=== PATIENT | female | born 1940 | race Caucasian/White ===

== ENCOUNTER 2018-07-04 10:24 | Observation (INO) | payer MEDICARE, SELFPAY ==
[2018-07-04] VITALS (20 sets, daily range): BP systolic 139–149; BP diastolic 71–73; PULSE 69–76; RESP 9–22; TEMP 36.3–36.7; O2SAT 96–100
[2018-07-04 11:03] LABS: Abs Immature Grans 0.01 k/cumm (0.0-0.09); Absolute Basophil Count 0.04 k/cumm (0.0-0.2); Absolute Eosinophil Count 0.28 k/cumm (0.0-0.7); Absolute Lymphocyte Count 1.48 k/cumm (1.2-3.4); Absolute Monocyte Count 0.43 k/cumm (0.11-0.7); Absolute Neutrophil Count 4.39 k/cumm (1.2-6.7); Basophils % 0.6; Eosinophils % 4.2; HCT 42.3 % (36.0-46.0); HGB 13.6 g/dL (12.0-15.5); Immature Grans % 0.2; Lymphocytes % 22.3; Mean Corp. HGB Concentration 32.2 g/dL (32.0-36.0); Mean Corpuscular Hemoglobin 33.3 pg (27.0-33.0); Mean Corpuscular Volume 103.7 fL (80-95); Mean Platelet Volume 9.9 fL (8.0-11.0); Monocytes % 6.5; Neutrophils % 66.2; Platelet Count 199 x1000/uL (130-400); RBC 4.08 m/cumm (4.00-5.20); RBC Distribution Width 14.4 % (11.7-14.6); White Blood Cell Count 6.63 k/cumm (4.4-10.8)
--- NOTE | 2018-07-04 11:19 | DI.CT_ITS ---
SYMPTOMS/DIAGNOSIS: DIZZY WITH SLURRED SPEECH THIS AM X 3, NOW RESOLVED CRANIAL CT: A noncontrast enhanced examination was performed. Atrophic changes consistent with age are identified. There is no evidence of an intra or extra-axial hemorrhage, mass or edema. Small regions of diminished absorption in the frontoparietal white matter would be consistent with small vessel disease. The ventricles are normal. There is no evidence of a skull fracture. The paranasal sinuses appear intact. There is no evidence of a mastoid effusion. SUMMARY: No acute intracranial abnormality is demonstrated.
[2018-07-04 11:24] LABS: ALT 55 U/L (12-78); AST 45 U/L (15-37); Albumin 3.7 g/dL (3.4-5.0); Alkaline Phosphatase 112 U/L (46-116); Bilirubin, Direct 0.09 mg/dL (0.00-0.20); Bilirubin, Total 0.3 mg/dL (0.2-1.0); Total Protein 7.6 g/dL (6.4-8.2)
[2018-07-04 11:26] LABS: ALT 55 U/L (12-78); AST 45 U/L (15-37); Albumin 3.6 g/dL (3.4-5.0); Alkaline Phosphatase 111 U/L (46-116); Anion Gap 9.1 mmol/L (3-11); BUN 22 mg/dL (7-18); Bilirubin, Total 0.3 mg/dL (0.2-1.0); CO2 27.9 mmol/L (21.0-32.0); CREATININE 1.04 mg/dL (0.55-1.02); Calcium 9.4 mg/dL (8.5-10.1); Chloride 105 mmol/L (98-107); Estimated GFR 50.99 (mL/min/1.73m2); Glucose 139 mg/dL (70-100); Magnesium 2.4 mg/dL (1.8-2.4); Potassium 4.5 mmol/L (3.5-5.1); Sodium 142 mmol/L (136-145); Total Protein 7.6 g/dL (6.4-8.2)
[2018-07-04 11:29] LABS: Troponin I < 0.02 ng/mL (0.00-0.06)
--- NOTE | 2018-07-04 11:29 | DI.RAD_ITS ---
SYMPTOMS/DIAGNOSIS: TIA PA AND LATERAL CHEST: The lungs are free of infiltrate. There is no pleural effusion. The cardiovascular structures are intact. Pacing wires are in stable position when compared with prior images dating back to 04/25/16. SUMMARY: No evidence of acute cardiopulmonary disease.
--- NOTE | 2018-07-04 11:50 | W.ED.GENAD ---
Discharge Plan Disposition Patient Disposition: [facility] INPATIENT Condition: Serious Discharge Details Chief Complaint: CVA/TIA Clinical Impression: TIA (transient ischemic attack) Reason For Visit: AZAM Primary Care Provider: Gema Guidry ED Provider: Madhu Lafleur Home Meds and New Rx's Prescriptions: No Action ascorbic acid (vitamin C) 500 MG tablet 500 mg PO DAILY RF: 0 aspirin [Aspirin Low-Strength] 81 MG tablet,chewable 81 mg PO DAILY RF: 0 ipratropium bromide [Atrovent] 30 ML spray,non-aerosol 2 spry NS BID PRN Qty: 1 RF: 11 cholecalciferol (vitamin D3) [Vitamin D3] 2,000 UNIT tablet 2,000 unit PO DAILY RF: 0 acetaminophen [Tylenol Extra Strength] 500 MG tablet 1,000 mg PO PRN RF: 0 calcium carbonate 500 MG tablet 1,500 mg PO DAILY RF: 0 tpspxxoq-vfp-RS-Ca carb-vit K [Women's 50 Plus Daily Formula] 1 EACH tablet 1 ea PO DAILY RF: 0 mupirocin [Bactroban] 22 GM ointment 1 darleen Topical DAILY Qty: 22 RF: 2 cinnamon bark-chromium picolin 1 EACH capsule 500 mg PO DAILY RF: 0 blood sugar diagnostic [FreeStyle Lite Strips] 1 EACH strip 1 strip Miscellaneous DAILY Qty: 100 RF: 4 clopidogrel 75 MG tablet 75 mg PO DAILY Qty: 90 RF: 4 metformin 500 MG tablet 500 mg PO qPM Qty: 90 RF: 4 nitroglycerin 0.4 MG tablet, sublingual 0.4 mg Sublingual Q 5 MIN PRN Qty: 25 RF: 11 mexiletine 200 MG capsule 200 mg PO TID Qty: 270 RF: 4 [place]-3S/Dha/Epa/Fish Oil [Fish Oil 1,000 mg Softgel] 1 EACH capsule 1 ea PO DAILY RF: 0 meclizine 25 MG tablet,chewable 25 mg PO BID Qty: 25 RF: 0 Metoprolol Succinate 50 MG TAB.ER.24H 50 mg PO DAILY Qty: 90 RF: 4 lancets 1 EACH misc 1 ea Miscellaneous DAILY Qty: 100 RF: 4 amiodarone 200 MG tablet 200 mg PO DAILY Qty: 90 RF: 3 Atorvastatin Calcium 20 MG tablet 20 mg PO DAILY Qty: 90 RF: 3 levothyroxine 75 MCG tablet 75 mcg PO 4 days a week Qty: 60 RF: 3 levothyroxine 50 MCG tablet 50 mcg PO DAILY Qty: 30 RF: 2 losartan 50 MG tablet 50 mg PO DAILY Qty: 90 RF: 4 emollient [Vanicream] 18,200 GM cream 18,200 gm Topical BID Qty: 1 RF: 0 Medical Decision Making 11:45 --78-year-old female with history of coronary artery disease, peripheral vascular disease, diabetes, here after 3 brief successive episodes of slurred speech and a sensation of generally not feeling well this morning. Asymptomatic at this time. Neurologically intact. Considered arrhythmia ECG reviewed and interpreted by me: Sinus rhythm 72 bpm, first-degree AV block with FL interval of 250, normal axis. First-degree AV block is new compared to prior EKG from 11/27/2015. While I was in the room with the patient, I observed on the monitor patient heart rhythm that appeared to be paced. High concern for TIA and this is despite her taking both aspirin and Plavix (both taken today) as prescribed for coronary artery disease. CT head interpreted by Dr. Wynn as nothing acute Chest x-ray interpreted by radiology: No evidence of acute cardiopulmonary disease. I called and spoke with the hospitalist on-call, Dr. Erazo, discussed ED presentation and course. He will admit the patient. He is aware of pending diagnostic workup. Care transitioned to Dr. Erazo. HPI General Mode of arrival: EMS. Date/Time Provider Initiated Documentation: 07/04/18 10:39. Limitations to Documentation: no limitations. Information obtained by: patient and EMS. HPI Narrative: 78-year-old female with multiple medical problems including history of coronary artery disease status post and STEMI, PCI to the left main, LVEF 25-30%, status post temporary pacemaker complicated by cardiac puncture and pneumothorax, Vtach, s/p ICD implantation, DM, PVD, here after episode of slurred speech. Patient notes that she was feeling well this morning. At 9 AM she was on the phone with her daughter and experienced 3 brief episodes of slurred speech and a general sensation of not feeling well. The episodes lasted a few seconds and resolved. She was asymptomatic between episodes and after the third episode. She has remained asymptomatic. Symptoms were severe. No modifiers. No associated headache, numbness or weakness. Patient has never experienced similar in the past. Patient did take her prescribed aspirin and Plavix today. Related Data Home Medications Medication Instructions Recorded Confirmed ascorbic acid (vitamin C) 500 mg PO DAILY 01/01/13 07/04/18 aspirin [Aspirin Low-Strength] 81 mg PO DAILY tab-cap 01/01/13 07/04/18 cholecalciferol (vitamin D3) 2,000 unit PO DAILY 01/01/13 07/04/18 [Vitamin D3] ipratropium bromide [Atrovent 2 spry NS BID PRN #1 spray 01/01/13 07/04/18 0.03%] acetaminophen [Tylenol Extra 1,000 mg PO PRN tab-cap 02/20/14 07/04/18 Strength] calcium carbonate 1,500 mg PO DAILY 05/07/15 07/04/18 nicldzov-sgo-JQ-Ca carb-vit K 1 ea PO DAILY 07/02/15 07/04/18 [Women's 50+ Daily Tablet] mupirocin [Bactroban] 1 darleen TOPICAL DAILY #22 gm 11/15/15 cinnamon bark-chromium picolin 500 mg PO DAILY 01/28/16 07/04/18 blood sugar diagnostic [Freestyle #100 strip 03/20/17 Lite Strips] clopidogrel 75 mg PO DAILY #90 tab-cap 05/14/17 07/04/18 metformin 500 mg PO qPM #90 tab-cap 05/18/17 07/04/18 nitroglycerin 0.4 mg SUBLINGUAL Q 5 MIN PRN #25 05/28/17 07/04/18 tab-cap mexiletine 200 mg PO TID #270 tab-cap 05/30/17 07/04/18 [place]-3S/Dha/Epa/Fish Oil [Fish 1 ea PO DAILY 08/08/17 07/04/18 Oil 1,000 mg Softgel] meclizine 25 mg PO BID #25 tab-cap 08/08/17 07/04/18 lancets #100 ea 10/01/17 amiodarone 200 mg PO DAILY #90 tab-cap 10/31/17 07/04/18 levothyroxine 50 mcg PO DAILY #30 tab-cap 12/24/17 07/04/18 levothyroxine 75 mcg PO 4 days a week #60 tab-cap 12/24/17 07/04/18 losartan 50 mg PO DAILY #90 tab-cap 04/26/18 07/04/18 emollient [Vanicream] 18,200 gm TOPICAL BID #1 tub 05/06/18 07/04/18 Previous Rx's Medication Instructions Recorded mexiletine 200 mg PO TID #270 tab-cap 05/30/17 meclizine 25 mg PO BID #25 tab-cap 08/08/17 lancets #100 ea 10/01/17 amiodarone 200 mg PO DAILY #90 tab-cap 10/31/17 levothyroxine 50 mcg PO DAILY #30 tab-cap 12/24/17 levothyroxine 75 mcg PO 4 days a week #60 tab-cap 12/24/17 losartan 50 mg PO DAILY #90 tab-cap 04/26/18 emollient [Vanicream] 18,200 gm TOPICAL BID #1 tub 05/06/18 Allergies Allergy/AdvReac Type Severity Reaction Status Date / Time lisinopril AdvReac Unknown COUGH Unverified 07/04/18 10:34 SCALLOP AdvReac Intermediate DIZZINESS, Uncoded 07/04/18 10:34 LIGHTHEADED General Stated Complaint: CVA/TIA LADAN: 2 Review of Systems Review of Systems All systems reviewed & are unremarkable except as noted in HPI and below Cardiovascular Denies chest pain, Denies diaphoresis, Denies syncope and Denies palpitations Gastrointestinal Denies abdominal pain Neurologic Denies syncope Endocrine Denies palpitations PFSH Family History Mother Cerebrovascular accident Father Essential hypertension Heart disease Sister Diabetes Grandfather No problems noted. Grandfather No problems noted. Grandmother No problems noted. Grandmother No problems noted. FAMILY HISTORY Cerebrovascular accident Sister Diabetes Essential hypertension Neoplasm Sister Diabetes Essential hypertension Cerebrovascular accident Son No problems noted. Daughter No problems noted. Social History Smoking/Tobacco Use Status: Former Tobacco Use Surgical History CYST-lower back section Cholecystectomy Extraction of cataract LEFT LEG (~04/2013) Ligation of fallopian tube Open Carpal Tunnel release (~07/2008) Exam Const General: cooperative and no acute distress HENMT Head: normocephalic and atraumatic Mouth: moist mucous membranes Eyes Conjunctivae: normal conjunctivae Sclera: normal sclerae EOM: EOM intact bilaterally Neck Neck: trachea midline and supple Resp Auscultation: clear to auscultation bilaterally, no rales, no rhonchi and no wheezes Cardio Jugular venous pressure: no JVD Rate: regular rate and not tachycardic Rhythm: regular rhythm GI Palpation: soft, not firm, no guarding, no masses, not rigid and nontender Skin General skin exam: no rashes or lesions noted Neuro General: alert, awake, oriented x3, tone normal, moves all extremities, no focal motor deficits and CN's II-XI intact bilaterally Cranial Nerves: CN's II-XI intact bilaterally Cognition: normal cognition Speech: speech normal, no expressive aphasia and no receptive aphasia Motor: muscle tone normal throughout and strength 5/5 throughout Extrem General: no edema Other: left bka Psych Appearance: grossly normal Mental Status: mental status grossly normal Speech and Movement: speech and movement normal Course Vital Signs Temperature 36.7 C 07/04/18 10:28 Pulse 73 07/04/18 10:28 Respiratory Rate 18 07/04/18 10:28 Pulse Oximetry 100 07/04/18 10:28 Temperature 36.7 C 07/04/18 10:28 Temperature Source Skin 07/04/18 10:28 Pulse 73 07/04/18 10:28 Respiratory Rate 18 07/04/18 10:28 Respiratory Effort 07/04/18 10:32 Pulse Oximetry 100 07/04/18 10:28 Oxygen Delivery Method Room Air 07/04/18 10:28 Oxygen Flow Rate 0 07/04/18 10:28 Pain Level 0 07/04/18 10:28 Lab/Test Results Lab/Test Results: Laboratory Tests Range/Units 07/04/18 07/04/18 07/04/18 10:50 10:50 10:50 WBC (4.4-10.8) k/cumm 6.63 RBC (4.00-5.20) m/cumm 4.08 Hgb (12.0-15.5) g/dL 13.6 Hct (36.0-46.0) % 42.3 MCV (80-95) fL 103.7 H MCH (27.0-33.0) pg 33.3 H MCHC (32.0-36.0) g/dL 32.2 RDW (11.7-14.6) % 14.4 Plt Count (130-400) x1000/uL 199 MPV (8.0-11.0) fL 9.9 Immature Gran % 0.2 Neutrophils % 66.2 Lymphocytes % 22.3 Monocytes % 6.5 Eosinophils % 4.2 Basophils % 0.6 Absolute Neutrophils (1.2-6.7) k/cumm 4.39 Absolute Lymphocytes (1.2-3.4) k/cumm 1.48 Absolute Monocytes (0.11-0.7) k/cumm 0.43 Absolute Eosinophils (0.0-0.7) k/cumm 0.28 Absolute Basophils (0.0-0.2) k/cumm 0.04 Sodium (136-145) mmol/L 142 Potassium (3.5-5.1) mmol/L 4.5 Chloride (98-107) mmol/L 105 Carbon Dioxide (21.0-32.0) mmol/L 27.9 Anion Gap (3-11) mmol/L 9.1 BUN (7-18) mg/dL 22 H Creatinine (0.55-1.02) mg/dL 1.04 H Estimated GFR/1.73 m2 (mL/min/1.73m2) 50.99 Glucose (70-100) mg/dL 139 H Calcium (8.5-10.1) mg/dL 9.4 Magnesium (1.8-2.4) mg/dL 2.4 Total Bilirubin (0.2-1.0) mg/dL 0.3 0.3 Conjugated Bilirubin (0.00-0.20) mg/dL 0.09 AST (15-37) U/L 45 H 45 H ALT (12-78) U/L 55 55 Alkaline Phosphatase (46-116) U/L 112 111 Troponin I (0.00-0.06) ng/mL < 0.02 Total Protein (6.4-8.2) g/dL 7.6 7.6 Albumin (3.4-5.0) g/dL 3.7 3.6
--- NOTE | 2018-07-04 12:02 | ED.GENADUL_ITS ---
Discharge Plan Disposition Patient Disposition: [facility] INPATIENT Condition: Serious Discharge Details Chief Complaint: CVA/TIA Clinical Impression: TIA (transient ischemic attack) Reason For Visit: AZAM Primary Care Provider: Gema Guidry ED Provider: Madhu Lafleur Home Meds and New Rx's Prescriptions: No Action ascorbic acid (vitamin C) 500 MG tablet 500 mg PO DAILY RF: 0 aspirin [Aspirin Low-Strength] 81 MG tablet,chewable 81 mg PO DAILY RF: 0 ipratropium bromide [Atrovent] 30 ML spray,non-aerosol 2 spry NS BID PRN Qty: 1 RF: 11 cholecalciferol (vitamin D3) [Vitamin D3] 2,000 UNIT tablet 2,000 unit PO DAILY RF: 0 acetaminophen [Tylenol Extra Strength] 500 MG tablet 1,000 mg PO PRN RF: 0 calcium carbonate 500 MG tablet 1,500 mg PO DAILY RF: 0 aixnulvy-hsx-JK-Ca carb-vit K [Women's 50 Plus Daily Formula] 1 EACH tablet 1 ea PO DAILY RF: 0 mupirocin [Bactroban] 22 GM ointment 1 darleen Topical DAILY Qty: 22 RF: 2 cinnamon bark-chromium picolin 1 EACH capsule 500 mg PO DAILY RF: 0 blood sugar diagnostic [FreeStyle Lite Strips] 1 EACH strip 1 strip Miscellaneous DAILY Qty: 100 RF: 4 clopidogrel 75 MG tablet 75 mg PO DAILY Qty: 90 RF: 4 metformin 500 MG tablet 500 mg PO qPM Qty: 90 RF: 4 nitroglycerin 0.4 MG tablet, sublingual 0.4 mg Sublingual Q 5 MIN PRN Qty: 25 RF: 11 mexiletine 200 MG capsule 200 mg PO TID Qty: 270 RF: 4 [place]-3S/Dha/Epa/Fish Oil [Fish Oil 1,000 mg Softgel] 1 EACH capsule 1 ea PO DAILY RF: 0 meclizine 25 MG tablet,chewable 25 mg PO BID Qty: 25 RF: 0 Metoprolol Succinate 50 MG TAB.ER.24H 50 mg PO DAILY Qty: 90 RF: 4 lancets 1 EACH misc 1 ea Miscellaneous DAILY Qty: 100 RF: 4 amiodarone 200 MG tablet 200 mg PO DAILY Qty: 90 RF: 3 Atorvastatin Calcium 20 MG tablet 20 mg PO DAILY Qty: 90 RF: 3 levothyroxine 75 MCG tablet 75 mcg PO 4 days a week Qty: 60 RF: 3 levothyroxine 50 MCG tablet 50 mcg PO DAILY Qty: 30 RF: 2 losartan 50 MG tablet 50 mg PO DAILY Qty: 90 RF: 4 emollient [Vanicream] 18,200 GM cream 18,200 gm Topical BID Qty: 1 RF: 0 Medical Decision Making 11:45 --78-year-old female with history of coronary artery disease, peripheral vascular disease, diabetes, here after 3 brief successive episodes of slurred speech and a sensation of generally not feeling well this morning. Asymptomatic at this time. Neurologically intact. Considered arrhythmia ECG reviewed and interpreted by me: Sinus rhythm 72 bpm, first-degree AV block with [place] interval of 250, normal axis. First-degree AV block is new compared to prior EKG from 11/27/2015. While I was in the room with the patient, I observed on the monitor patient heart rhythm that appeared to be paced. High concern for TIA and this is despite her taking both aspirin and Plavix ( both taken today) as prescribed for coronary artery disease. CT head interpreted by Dr. Wynn as nothing acute Chest x-ray interpreted by radiology: No evidence of acute cardiopulmonary disease. I called and spoke with the hospitalist on-call, Dr. Erazo, discussed ED presentation and course. He will admit the patient. He is aware of pending diagnostic workup. Care transitioned to Dr. Erazo. HPI General Mode of arrival: EMS . Date/Time Provider Initiated Documentation: 07/04/18 10:39 . Limitations to Documentation: no limitations . Information obtained by: patient and EMS . HPI Narrative: 78-year-old female with multiple medical problems including history of coronary artery disease status post and STEMI, PCI to the left main, LVEF 25-30%, status post temporary pacemaker complicated by cardiac puncture and pneumothorax, Vtach, s/p ICD implantation, DM, PVD, here after episode of slurred speech. Patient notes that she was feeling well this morning. At 9 AM she was on the phone with her daughter and experienced 3 brief episodes of slurred speech and a general sensation of not feeling well. The episodes lasted a few seconds and resolved. She was asymptomatic between episodes and after the third episode. She has remained asymptomatic. Symptoms were severe. No modifiers. No associated headache, numbness or weakness. Patient has never experienced similar in the past. Patient did take her prescribed aspirin and Plavix today. Related Data Home Medications Medication Instructions Recorded Confirmed ascorbic acid (vitamin C) 500 mg PO DAILY 01/01/13 07/04/18 aspirin [Aspirin Low-Strength] 81 mg PO DAILY tab-cap 01/01/13 07/04/18 cholecalciferol (vitamin D3) 2,000 unit PO DAILY 01/01/13 07/04/18 [Vitamin D3] ipratropium bromide [Atrovent 2 spry NS BID PRN #1 spray 01/01/13 07/04/18 0.03%] acetaminophen [Tylenol Extra 1,000 mg PO PRN tab-cap 02/20/14 07/04/18 Strength] calcium carbonate 1,500 mg PO DAILY 05/07/15 07/04/18 xezfhaae-gcy-XU-Ca carb-vit K 1 ea PO DAILY 07/02/15 07/04/18 [Women's 50+ Daily Tablet] mupirocin [Bactroban] 1 darleen TOPICAL DAILY #22 gm 11/15/15 cinnamon bark-chromium picolin 500 mg PO DAILY 01/28/16 07/04/18 blood sugar diagnostic [Freestyle #100 strip 03/20/17 Lite Strips] clopidogrel 75 mg PO DAILY #90 tab-cap 05/14/17 07/04/18 metformin 500 mg PO qPM #90 tab-cap 05/18/17 07/04/18 nitroglycerin 0.4 mg SUBLINGUAL Q 5 MIN PRN #25 05/28/17 07/04/18 tab-cap mexiletine 200 mg PO TID #270 tab-cap 05/30/17 07/04/18 [place]-3S/Dha/Epa/Fish Oil [Fish 1 ea PO DAILY 08/08/17 07/04/18 Oil 1,000 mg Softgel] meclizine 25 mg PO BID #25 tab-cap 08/08/17 07/04/18 lancets #100 ea 10/01/17 amiodarone 200 mg PO DAILY #90 tab-cap 10/31/17 07/04/18 levothyroxine 50 mcg PO DAILY #30 tab-cap 12/24/17 07/04/18 levothyroxine 75 mcg PO 4 days a week #60 tab-cap 12/24/17 07/04/18 losartan 50 mg PO DAILY #90 tab-cap 04/26/18 07/04/18 emollient [Vanicream] 18,200 gm TOPICAL BID #1 tub 05/06/18 07/04/18 Previous Rx's Medication Instructions Recorded mexiletine 200 mg PO TID #270 tab-cap 05/30/17 meclizine 25 mg PO BID #25 tab-cap 08/08/17 lancets #100 ea 10/01/17 amiodarone 200 mg PO DAILY #90 tab-cap 10/31/17 levothyroxine 50 mcg PO DAILY #30 tab-cap 12/24/17 levothyroxine 75 mcg PO 4 days a week #60 tab-cap 12/24/17 losartan 50 mg PO DAILY #90 tab-cap 04/26/18 emollient [Vanicream] 18,200 gm TOPICAL BID #1 tub 05/06/18 Allergies Allergy/AdvReac Type Severity Reaction Status Date / Time lisinopril AdvReac Unknown COUGH Unverified 07/04/18 10:34 SCALLOP AdvReac Intermediate DIZZINESS, Uncoded 07/04/18 10:34 LIGHTHEADED General Stated Complaint: CVA/TIA LADAN: 2 Review of Systems Review of Systems All systems reviewed & are unremarkable except as noted in HPI and below Cardiovascular Denies chest pain, Denies diaphoresis, Denies syncope and Denies palpitations Gastrointestinal Denies abdominal pain Neurologic Denies syncope Endocrine Denies palpitations PFSH Family History Mother Cerebrovascular accident Father Essential hypertension Heart disease Sister Diabetes Grandfather No problems noted. Grandfather No problems noted. Grandmother No problems noted. Grandmother No problems noted. FAMILY HISTORY Cerebrovascular accident Sister Diabetes Essential hypertension Neoplasm Sister Diabetes Essential hypertension Cerebrovascular accident Son No problems noted. Daughter No problems noted. Social History Smoking/Tobacco Use Status: Former Tobacco Use Surgical History CYST-lower back section Cholecystectomy Extraction of cataract LEFT LEG (~04/2013) Ligation of fallopian tube Open Carpal Tunnel release (~07/2008) Exam Const General: cooperative and no acute distress HENMT Head: normocephalic and atraumatic Mouth: moist mucous membranes Eyes Conjunctivae: normal conjunctivae Sclera: normal sclerae EOM: EOM intact bilaterally Neck Neck: trachea midline and supple Resp Auscultation: clear to auscultation bilaterally, no rales, no rhonchi and no wheezes Cardio Jugular venous pressure: no JVD Rate: regular rate and not tachycardic Rhythm: regular rhythm GI Palpation: soft, not firm, no guarding, no masses, not rigid and nontender Skin General skin exam: no rashes or lesions noted Neuro General: alert, awake, oriented x3, tone normal, moves all extremities, no focal motor deficits and CN's II-XI intact bilaterally Cranial Nerves: CN's II-XI intact bilaterally Cognition: normal cognition Speech: speech normal, no expressive aphasia and no receptive aphasia Motor: muscle tone normal throughout and strength 5/5 throughout Extrem General: no edema Other: left bka Psych Appearance: grossly normal Mental Status: mental status grossly normal Speech and Movement: speech and movement normal Course Vital Signs Temperature 36.7 C 07/04/18 10:28 Pulse 73 07/04/18 10:28 Respiratory Rate 18 07/04/18 10:28 Pulse Oximetry 100 07/04/18 10:28 Temperature 36.7 C 07/04/18 10:28 Temperature Source Skin 07/04/18 10:28 Pulse 73 07/04/18 10:28 Respiratory Rate 18 07/04/18 10:28 Respiratory Effort 07/04/18 10:32 Pulse Oximetry 100 07/04/18 10:28 Oxygen Delivery Method Room Air 07/04/18 10:28 Oxygen Flow Rate 0 07/04/18 10:28 Pain Level 0 07/04/18 10:28 Lab/Test Results Lab/Test Results: Laboratory Tests Range/Units 07/04/18 07/04/18 07/04/18 10:50 10:50 10:50 WBC (4.4-10.8) k/cumm 6.63 RBC (4.00-5.20) m/cumm 4.08 Hgb (12.0-15.5) g/dL 13.6 Hct (36.0-46.0) % 42.3 MCV (80-95) fL 103.7 H MCH (27.0-33.0) pg 33.3 H MCHC (32.0-36.0) g/dL 32.2 RDW (11.7-14.6) % 14.4 Plt Count (130-400) x1000/uL 199 MPV (8.0-11.0) fL 9.9 Immature Gran % 0.2 Neutrophils % 66.2 Lymphocytes % 22.3 Monocytes % 6.5 Eosinophils % 4.2 Basophils % 0.6 Absolute Neutrophils (1.2-6.7) k/cumm 4.39 Absolute Lymphocytes (1.2-3.4) k/cumm 1.48 Absolute Monocytes (0.11-0.7) k/cumm 0.43 Absolute Eosinophils (0.0-0.7) k/cumm 0.28 Absolute Basophils (0.0-0.2) k/cumm 0.04 Sodium (136-145) mmol/L 142 Potassium (3.5-5.1) mmol/L 4.5 Chloride (98-107) mmol/L 105 Carbon Dioxide (21.0-32.0) mmol/L 27.9 Anion Gap (3-11) mmol/L 9.1 BUN (7-18) mg/dL 22 H Creatinine (0.55-1.02) mg/dL 1.04 H Estimated GFR/1.73 m2 (mL/min/1.73m2) 50.99 Glucose (70-100) mg/dL 139 H Calcium (8.5-10.1) mg/dL 9.4 Magnesium (1.8-2.4) mg/dL 2.4 Total Bilirubin (0.2-1.0) mg/dL 0.3 0.3 Conjugated Bilirubin (0.00-0.20) mg/dL 0.09 AST (15-37) U/L 45 H 45 H ALT (12-78) U/L 55 55 Alkaline Phosphatase (46-116) U/L 112 111 Troponin I (0.00-0.06) ng/mL < 0.02 Total Protein (6.4-8.2) g/dL 7.6 7.6 Albumin (3.4-5.0) g/dL 3.7 3.6
[2018-07-04 12:11] LABS: Bilirubin Negative (Negative); Blood Negative (Negative); Clarity Clear; Glucose Negative (Negative); Ketones Negative (Negative); Leukocyte Esterase Trace (Negative); Nitrite Negative (Negative); Urobilinogen 0.2 EU/dL (Up TO 0.2)
[2018-07-04 12:19] LABS: Bacteria Few HPF (Negative); C & S Indicated? No; Casts Negative LPF (Negative); Crystals Negative HPF (Negative); Epithelial Cells Few HPF (Negative); Mucus Negative (Negative); Other Cells Few Transitional (Negative); RBC Negative (0-2); WBC 0-2 HPF (0-5)
--- NOTE | 2018-07-04 13:56 | DI.US_ITS ---
SYMPTOMS/DIAGNOSIS: TRANSIENT ISCHEMIC ATTACK, MULTIPLE EPISODES OF GARBLED SPEECH CAROTID ULTRASOUND: There is mild to moderate plaque in the right carotid bulb and proximal ICA. Moderate to severe plaque is noted in the left carotid bulb and proximal ICA and mid portion of the common carotid artery. Bilateral antegrade flow is noted in the vertebrals. There is no evidence of greater than 50% stenosis in the carotid vessels.
--- NOTE | 2018-07-04 14:52 | HPE_ITS ---
Date of service: 07/04/18 Time of Service: 14:51 Assessment and Plan (1) Slurred speech: Current visit: Yes Status: Acute She experienced 3 brief episodes of slurred speech today which has resolved completely. She had a CT head which did not reveal an acute intracranial process. She cannot have an MRI due to her pacer/ICD. Carotid artery ultrasound pending. Echo ordered. Monitor on telemetry. Continue home dual antiplatelet therapy and statin as well as good blood pressure control. She will need extended cardiac monitoring upon discharge. (2) Non-ST elevation (NSTEMI) myocardial infarction: Current visit: Yes Status: Acute Continue dual antiplatelet therapy, BB, statin, arb, PRN nitro. (3) Fracture of neck of left femur: Current visit: Yes Status: Acute Recently fractured left femur with repair at [facility] (early may). She is doing well postoperatively. Continue to monitor. (4) Ventricular fibrillation: Current visit: Yes Status: Acute Pacer/ICD placed. Continue rate controlling medications. Monitor on telemetry. (5) Amputated below knee: Current visit: Yes Status: Acute Wears prosthesis. No open areas or erythema at amputation site. Continue to monitor. (6) Type 2 diabetes mellitus: Current visit: Yes Status: Acute Well controlled. Last Hgb A1c 6.2 per patient. Plan to reassess with morning labs. Continue ADA diet and fingersticks. (7) Discharge planning issues: Current visit: Yes Status: Acute She is a DNR/DNI. This case was discussed with Dr. Erazo who is in agreement. History of Present Illness Chief Complaint: Slurred speech Narrative: Cris Beltran is an 78 year old female with a complicated past medical history including NSTEMI with [address] [facility] 3 years ago, complicated by cardiac puncture and pneumothorax, Vtach, s/p ICD implantation. Her LVEF is 25-30%. She also has a history of diabetes with left BKA. presented to the ED today after she experienced 3 very brief episodes of slurred speech while on the phone with her daughter this morning. She was also experiencing ringng in the ears at that time. She reports being in her usual state of health prior. She denies any headache, dizziness, vision changes, coordination problems , no chest pain/pressure, palpitations, shortness of breath, coughing, wheezing , no nausea, vomiting, diarrhea or constipation. She denies any urinary symptoms. Work up in the ED included labs which revealed an elevated BUN and creatinine of 22 and 1.04, without any other abnormalities. She had a CT head that showed no acute process. Chest x-ray showed no evidence of acute cardiopulmonary disease. She cannot have MRI due to pacer/ICD. She is admitted to the floor for further observation and management. She will remain on telemetry. She will have echocardiogram and carotid artery ultrasound. Her case was discussed with neurology, will consult as needed pending study results. Review of Systems Constitutional Denies chills, Denies fever(s) and Denies headache(s) Eyes Denies change in vision and Denies diplopia ENT Denies dizziness and Denies headache(s) Cardiovascular Denies chest pain, Denies diaphoresis, Denies syncope, Denies rapid heart rate, Denies edema, Denies lightheadedness and Denies dyspnea Respiratory Denies cough, Denies dyspnea and Denies wheezing Gastrointestinal Denies abdominal pain, Denies constipation, Denies nausea and Denies vomiting Genitourinary Denies hematuria, Denies dysuria, Denies urinary incontinence and Denies urinary urgency Musculoskeletal Denies numbness and Reports other Comments: LBKA. No pain, stiffness or swelling. No calf swelling or tenderness. Integumentary/Breasts Denies lesions and Denies rash Neurologic Reports abnormal speech (as per HPI), Denies confusion, Denies dizziness, Denies syncope, Denies headache(s) and Denies numbness Psychiatric Denies confusion Allergic/Immunologic Denies wheezing COUNT INCLUDES THE [facility] Family History Mother Cerebrovascular accident Father Essential hypertension Heart disease Sister Diabetes Grandfather No problems noted. Grandfather No problems noted. Grandmother No problems noted. Grandmother No problems noted. FAMILY HISTORY Cerebrovascular accident Sister Diabetes Essential hypertension Neoplasm Sister Diabetes Essential hypertension Cerebrovascular accident Son No problems noted. Daughter No problems noted. Social History Smoking/Tobacco Use Status: Former Tobacco Use Surgical History CYST-lower back section Cholecystectomy Extraction of cataract LEFT LEG (~04/2013) Ligation of fallopian tube Open Carpal Tunnel release (~07/2008) Meds Home Medications Medication Instructions Recorded Confirmed Type ascorbic acid (vitamin C) 500 mg PO DAILY 01/01/13 07/04/18 History aspirin [Aspirin Low-Strength] 81 mg PO DAILY tab-cap 01/01/13 07/04/18 History cholecalciferol (vitamin D3) 2,000 unit PO DAILY 01/01/13 07/04/18 History [Vitamin D3] ipratropium bromide [Atrovent 2 spry NS BID PRN #1 spray 01/01/13 07/04/18 History 0.03%] acetaminophen [Tylenol Extra 1,000 mg PO PRN tab-cap 02/20/14 07/04/18 History Strength] calcium carbonate 1,500 mg PO DAILY 05/07/15 07/04/18 History [id number] carb-vit K 1 ea PO DAILY 07/02/15 07/04/18 History [Women's 50+ Daily Tablet] mupirocin [Bactroban] 1 darleen TOPICAL DAILY #22 gm 11/15/15 History cinnamon bark-chromium picolin 500 mg PO DAILY 01/28/16 07/04/18 History blood sugar diagnostic [Freestyle #100 strip 03/20/17 History Lite Strips] clopidogrel 75 mg PO DAILY #90 tab-cap 05/14/17 07/04/18 History metformin 500 mg PO qPM #90 tab-cap 05/18/17 07/04/18 History nitroglycerin 0.4 mg SUBLINGUAL Q 5 MIN PRN #25 05/28/17 07/04/18 History tab-cap mexiletine 200 mg PO TID #270 tab-cap 05/30/17 07/04/18 Rx [place]-3S/Dha/Epa/Fish Oil [Fish 1 ea PO DAILY 08/08/17 07/04/18 History Oil 1,000 mg Softgel] meclizine 25 mg PO BID #25 tab-cap 08/08/17 07/04/18 Rx Metoprolol Succinate 50 mg PO DAILY #90 tab-cap 09/18/17 07/04/18 Clinic lancets #100 ea 10/01/17 Rx amiodarone 200 mg PO DAILY #90 tab-cap 10/31/17 07/04/18 Rx Atorvastatin Calcium 20 mg PO DAILY #90 tab-cap 11/28/17 07/04/18 Clinic levothyroxine 50 mcg PO DAILY #30 tab-cap 12/24/17 07/04/18 Rx levothyroxine 75 mcg PO 4 days a week #60 tab-cap 12/24/17 07/04/18 Rx losartan 50 mg PO DAILY #90 tab-cap 04/26/18 07/04/18 Rx emollient [Vanicream] 18,200 gm TOPICAL BID #1 tub 05/06/18 07/04/18 Rx Allergies Allergy/AdvReac Type Severity Reaction Status Date / Time lisinopril AdvReac Unknown COUGH Unverified 07/04/18 10:34 SCALLOP AdvReac Intermediate DIZZINESS, Uncoded 07/04/18 10:34 LIGHTHEADED Exam Const General: cooperative, healthy appearing, comfortable and no acute distress Nutritional Appearance: well nourished Orientation: alert, awake and oriented x3 HENMT Head: normocephalic and atraumatic Mouth: moist mucous membranes Eyes Conjunctivae: conjunctivae normal (noninjected) Sclera: sclerae normal (nonicteric) Pupils: PERRL Neck Neck: supple and no JVD Carotids: no bruits Resp Effort & Inspection: normal respiratory effort and no cough Auscultation: clear to auscultation bilaterally Cardio Rate: regular rate and not tachycardic Heart Sounds: no gallops, no murmurs and no rubs Pulses: normal peripheral pulses GI Palpation: soft, no masses and nontender Auscultation: normal bowel sounds Skin General skin exam: no rashes or lesions noted and other (Left stump inspected, no open areas or erythema noted.) Neuro General: alert, awake, oriented x3, moves all extremities (left BKA.) and not confused Cranial Nerves: PERRL and EOM intact bilaterally Cognition: normal cognition Speech: speech normal Motor: strength 5/5 throughout Extrem General: no clubbing, cyanosis or edema (left BKA.) Results Labs : 07/04/18 10:50 07/04/18 10:50 Laboratory Results - last 24 hr 07/04/18 07/04/18 07/04/18 10:50 10:50 10:50 WBC 6.63 RBC 4.08 Hgb 13.6 Hct 42.3 MCV 103.7 H MCH 33.3 H MCHC 32.2 RDW 14.4 Plt Count 199 MPV 9.9 Immature Gran % 0.2 Neutrophils % 66.2 Lymphocytes % 22.3 Monocytes % 6.5 Eosinophils % 4.2 Basophils % 0.6 Absolute Neutrophils 4.39 Absolute Lymphocytes 1.48 Absolute Monocytes 0.43 Absolute Eosinophils 0.28 Absolute Basophils 0.04 Sodium 142 Potassium 4.5 Chloride 105 Carbon Dioxide 27.9 Anion Gap 9.1 BUN 22 H Creatinine 1.04 H Estimated GFR/1.73 m2 50.99 Glucose 139 H Calcium 9.4 Magnesium 2.4 Total Bilirubin 0.3 0.3 Conjugated Bilirubin 0.09 AST 45 H 45 H ALT 55 55 Alkaline Phosphatase 112 111 Troponin I < 0.02 Total Protein 7.6 7.6 Albumin 3.7 3.6 Urine Color Urine Clarity Urine pH Ur Specific [place] Urine Protein Urine Ketones Urine Blood Urine Nitrite Urine Bilirubin Urine Urobilinogen Ur Leukocyte Esterase Urine RBC Urine WBC Ur Epithelial Cells Urine Crystals Urine Bacteria Urine Casts Urine Mucus Urine Other Ur Culture Indicated? Urine Glucose 07/04/18 11:45 WBC RBC Hgb Hct MCV MCH MCHC RDW Plt Count MPV Immature Gran % Neutrophils % Lymphocytes % Monocytes % Eosinophils % Basophils % Absolute Neutrophils Absolute Lymphocytes Absolute Monocytes Absolute Eosinophils Absolute Basophils Sodium Potassium Chloride Carbon Dioxide Anion Gap BUN Creatinine Estimated GFR/1.73 m2 Glucose Calcium Magnesium Total Bilirubin Conjugated Bilirubin AST ALT Alkaline Phosphatase Troponin I Total Protein Albumin Urine Color Yellow Urine Clarity Clear Urine pH 7.0 Ur Specific [place] 1.010 Urine Protein Negative Urine Ketones Negative Urine Blood Negative Urine Nitrite Negative Urine Bilirubin Negative Urine Urobilinogen 0.2 Ur Leukocyte Esterase Trace H Urine RBC Negative Urine WBC 0-2 Ur Epithelial Cells Few Urine Crystals Negative Urine Bacteria Few Urine Casts Negative Urine Mucus Negative Urine Other Few transitional Ur Culture Indicated? No Urine Glucose Negative Last Vital Signs Temp 36.7 C 07/04/18 13:22 Pulse 71 07/04/18 14:15 Resp 16 07/04/18 13:22 Pulse Ox 100 07/04/18 13:22
[2018-07-04] MEDS: Enoxaparin 40 MG/0.4 ML SYR SC (14:53)
[2018-07-04] MEDS: Atorvastatin 20 MG TAB PO (19:32)
[2018-07-05] VITALS (8 sets, daily range): BP systolic 97–161; BP diastolic 58–66; PULSE 59–73; RESP 16–18; TEMP 36–36.8; O2SAT 94–100
[2018-07-05] MEDS: Levothyroxine 50 MCG TAB PO (07:02)
[2018-07-05 07:26] LABS: Absolute Basophil Count 0.05 k/cumm (0.0-0.2); Absolute Eosinophil Count 0.34 k/cumm (0.0-0.7); Absolute Lymphocyte Count 2.22 k/cumm (1.2-3.4); Absolute Monocyte Count 0.56 k/cumm (0.11-0.7); Absolute Neutrophil Count 3.09 k/cumm (1.2-6.7); Basophils % 0.8; Eosinophils % 5.4; HCT 40.2 % (36.0-46.0); HGB 13.1 g/dL (12.0-15.5); Lymphocytes % 35.5; Mean Corp. HGB Concentration 32.6 g/dL (32.0-36.0); Mean Corpuscular Hemoglobin 33.7 pg (27.0-33.0); Mean Corpuscular Volume 103.3 fL (80-95); Mean Platelet Volume 10.2 fL (8.0-11.0); Monocytes % 8.9; Neutrophils % 49.4; Platelet Count 188 x1000/uL (130-400); RBC 3.89 m/cumm (4.00-5.20); RBC Distribution Width 14.3 % (11.7-14.6); White Blood Cell Count 6.26 k/cumm (4.4-10.8)
--- NOTE | 2018-07-05 07:34 | MERGE_ITS ---
*[facility]* *[facility]* [address] [place] [address] Date of study: 07/05/2018 Transthoracic Echocardiography M-mode, complete 2D, complete spectral Doppler, and color Doppler *STUDY CONCLUSIONS* Summary: 1. Left ventricle: The cavity size was normal. Wall thickness was at the upper limits of normal. Systolic function was normal. The estimated ejection fraction was 60-65%. Some parameters suggest diastolic dysfunction. Doppler parameters are consistent with high ventricular filling pressure. No evidence of thrombus. 2. Aortic valve: There was moderate regurgitation. 3. Mitral valve: Moderately to severely calcified annulus. There was moderate regurgitation. 4. Right ventricle: The cavity size was normal. Wall thickness was normal. Pacer wire or catheter noted in right ventricle. Systolic function was normal. 5. Atrial septum: No defect or patent foramen ovale was identified. 6. Pulmonic valve: There was moderate regurgitation. Peak gradient (S): 6.6mm Hg. 7. Pulmonary arteries: Pulmonary systolic pressure was in the range of 25mm Hg to 35mm Hg. 8. Inferior vena cava: The vessel was normal in size. The respirophasic diameter changes were in the normal range (greater than or equal to 50%), consistent with normal central venous pressure. *PATIENT PRESENTATION* Height: 154.9cm ((61in) ) S/D Pressure: 100 / 60 Weight: 65.3kg ((143.7lb) ) BSA: 1.7m^2 Test start time: 07:30 AM. Test stop time: 08:40 AM. PERFORMING Unknown ORDERING Josef Erazo REFERRING Josef Erazo PERFORMING [facility] [employer] Marianela Weinstein *PROCEDURE DATA* Procedure information: This study was interpreted by [facility]. Pertinent images and digital data are archived for permanent storage and are available for subsequent review. No prior study was available for comparison. Study status: Routine. Transthoracic echocardiography. M-mode, complete 2D, complete spectral Doppler, and color Doppler. A Transthoracic Echocardiogram was performed. Scanning was performed from the parasternal, apical, subcostal, and suprasternal notch acoustic windows. Images were obtained using an Acus[employer]ra Style SC 2000 cardiac ultrasound machine. Image quality was adequate. Study completion: The patient tolerated the procedure well. History: PMH: Tia, cad. *CARDIAC ANATOMY* Left ventricle: The cavity size was normal. Wall thickness was at the upper limits of normal. Systolic function was normal. The estimated ejection fraction was 60-65%. No evidence of thrombus. The tissue Doppler parameters were abnormal. Some parameters suggest diastolic dysfunction. Doppler parameters are consistent with high ventricular filling pressure. Aortic valve: Doppler: There was no stenosis. There was moderate regurgitation. VTI ratio of LVOT to aortic valve: 0.59. Peak velocity ratio of LVOT to aortic valve: 0.59. Mean velocity ratio of LVOT to aortic valve: 0.56. Mean gradient (S): 3.6mm Hg. Peak gradient (S): 6.7mm Hg. Aorta: Aortic root: The aortic root was normal in size. Ascending aorta: The ascending aorta was normal in size. Mitral valve: Moderately to severely calcified annulus. Doppler: There was no evidence for stenosis. There was moderate regurgitation. Valve area by pressure half-time: 6cm^2. Indexed valve area by pressure half-time: 3.6cm^2/m^2. Peak gradient (D): 2.4mm Hg. Left atrium: The atrium was normal in size. Atrial septum: No defect or patent foramen ovale was identified. Right ventricle: The cavity size was normal. Wall thickness was normal. Pacer wire or catheter noted in right ventricle. Systolic function was normal. Pulmonic valve: Doppler: There was no evidence for stenosis. There was moderate regurgitation. Peak gradient (S): 6.6mm Hg. Tricuspid valve: Doppler: There was trivial regurgitation. Pulmonary artery: Poorly visualized. Pulmonary systolic pressure was in the range of 25mm Hg to 35mm Hg. Right atrium: The atrium was normal in size. Pacer wire or catheter noted in right atrium. Pericardium: There was no pericardial effusion. Systemic veins: Inferior vena cava: The vessel was normal in size. The respirophasic diameter changes were in the normal range (greater than or equal to 50%), consistent with normal central venous pressure. Measurements Left ventricle Value Reference LV ID, ED, PLAX 4.1 cm 3.5 - 6.0 LV ID, ES, PLAX 3.0 cm 2.1 - 4.0 LV PW thickness, ED, PLAX 1.0 cm LV end-diastolic volume, 1-p A2C 69 ml LV ejection fraction, 1-p A2C 53 % LV end-diastolic volume, 1-p A4C 69 ml LV ejection fraction, 1-p A4C 50 % LV e', lateral 0.046 m/sec LV E/e', lateral 17 Ventricular septum Value Reference IVS thickness, ED, PLAX 1.0 cm LVOT Value Reference LVOT peak velocity, S 0.76 m/sec LVOT mean velocity, S 0.49 m/sec LVOT VTI, S 15.9 cm LVOT peak gradient, S 2.3 mm Hg LVOT mean gradient, S 1.1 mm Hg Aortic valve Value Reference Aortic valve peak velocity, S 1.3 m/sec Aortic valve mean velocity, S 0.88 m/sec Aortic valve VTI, S 27.0 cm Aortic mean gradient, S 3.6 mm Hg Aortic peak gradient, S 6.7 mm Hg VTI ratio, LVOT/AV 0.59 Velocity ratio, peak, LVOT/AV 0.59 Velocity ratio, mean, LVOT/AV 0.56 Aorta Value Reference Aortic root ID, ED 2.3 cm Ascending aorta ID, A-P, S 3.0 cm Left atrium Value Reference LA ID, A-P, ES 3.2 cm LA ID/bsa, A-P 1.9 cm/m^2 <=2.2 LA area, ES, A4C 13.3 cm^2 8.8 - 23.4 LA area, ES, A2C 15 cm^2 LA volume/bsa, S 24 ml/m^2 LA volume, ES, 2-p 36 ml LA volume/bsa, ES, 2-p 21 ml/m^2 LA/aortic root ratio 1.35 Mitral valve Value Reference Mitral E-wave peak velocity 0.77 m/sec Mitral A-wave peak velocity 1.46 m/sec Mitral deceleration time (L) 126 ms 150 - 230 Mitral pressure half-time 36 ms Mitral peak gradient, D 2.4 mm Hg Mitral E/A ratio, peak 0.53 Mitral valve area, PHT, DP 6 cm^2 Tricuspid valve Value Reference Tricuspid regurg peak velocity 2.7 m/sec Tricuspid peak RV-RA gradient 29.4 mm Hg Right atrium Value Reference RA area, ES, A4C 9.3 cm^2 8.3 - 19.5 Pulmonic valve Value Reference Pulmonic peak gradient, S 6.6 mm Hg Legend: (L) and (H) tawnya values outside specified reference range. I have personally reviewed the images and have reviewed and edited the reported findings. Electronically signed by Bartolo Proctor MD 07/05/2018 17:51
[2018-07-05 07:47] LABS: Anion Gap 8.5 mmol/L (3-11); BUN 20 mg/dL (7-18); CO2 25.5 mmol/L (21.0-32.0); Calcium 9.2 mg/dL (8.5-10.1); Chloride 106 mmol/L (98-107); Cholesterol 144 mg/dL (50-200); Estimated GFR 47.79 (mL/min/1.73m2); Glucose 103 mg/dL (70-100); HDL Cholesterol 42 mg/dL (40-60); LDL CHOLESTEROL 86 mg/dL (<100); Potassium 4.2 mmol/L (3.5-5.1); Sodium 140 mmol/L (136-145); TSH 4.27 uIU/mL (0.358-3.74); Triglyceride 123 mg/dL (30-150)
[2018-07-05 07:59] LABS: Hemoglobin A1C 5.4 % (4.5-6.2)
[2018-07-05] MEDS: Amiodarone 200 MG TAB PO (09:24)
[2018-07-05] MEDS: Clopidogrel 75 MG TAB PO (09:24)
[2018-07-05] MEDS: Metoprolol CR 50 MG TABCR PO (09:24)
[2018-07-05] MEDS: Ascorbic Acid 500 MG TAB PO (09:24)
[2018-07-05] MEDS: Calcium Carbonate 1.25 GM TAB 3.75 GM PO (09:25)
[2018-07-05] MEDS: Losartan 50 MG TAB PO (09:25)
[2018-07-05] MEDS: Omega-3 Fatty Acids 1000 MG CAP PO (09:25)
[2018-07-05] MEDS: Aspirin 81 MG CHEW PO (09:25)
--- NOTE | 2018-07-05 14:10 | PDOC.CMIN ---
- If Service Date Differs Date of service: 07/05/18 Time of Service: 14:10 Care Management Initial Assess REASON FOR HOSPITALIZATION:: TIA PAST MEDICAL HISTORY/PAST SURGICAL HISTORY:: PVD, claudication, coronary atherosclerosis, essential hypertension, fracture of neck of left femur, hyperlipidemia, ischemic cardiomyopathy, DM, NSTEMI, polymyalgia rheumatica, rosacea, ventricular fibrillation. Surgical hx: BKA left, , cholecystectomy, cataract. PREVIOUS FUNCTIONAL STATUS/SOCIAL/FAMILY SUPPORTS:: Cris lives in her own home in a [facility] in [place], [place]. She has two children that are grown and several friends in her community that are supportive. Cris drives has her own transportation and is independent with ADL's. CURRENT FUNCTIONAL STATUS:: Cris is sitting up in the chair she is alert and engaged with CM during assessment. She feels that she is ready to return home. She reviews events that led to admission including symptoms of ringing in her ears. She feels that her symptoms have resolved. ADVANCE DIRECTIVES:: On file at [facility] Has patient been provided with information about the portal?: Yes Did the patient sign up for the portal?: Yes (enrolled ) CODE STATUS:: DNR/DNI INSURANCE COVERAGE / FINANCIAL ISSUES:: Medicare and [employer] CURRENT HOME/COMMUNITY SERVICES/EQUIPMENT:: Cris has a cane and she receives services through [facility] and [facility] POTENTIAL DISCHARGE NEEDS:: Follow up appointment with neurology and primary care prior to discharge. PATIENT/FAMILY EDUCATION NEEDS:: Discharge limitations, follow up plan of care, and ask me three discussion including self managment. ANTICIPATED BARRIERS TO DISCHARGE:: None identified. TRANSPORTATION:: Via private car with friend at time of discharge. PLAN:: Cris will be discharged home when medically ready per provider. She will have a neurology consult she continues on telemetry at this time. She will transport home with friend at time of discharge. No addtional services at this time.
[2018-07-05] MEDS: Enoxaparin 40 MG/0.4 ML SYR SC (14:44)
--- NOTE | 2018-07-05 14:52 | INITIAL_ITS ---
- If Service Date Differs Date of service: 07/05/18 Time of Service: 14:10 Care Management Initial Assess REASON FOR HOSPITALIZATION:: TIA PAST MEDICAL HISTORY/PAST SURGICAL HISTORY:: PVD, claudication, coronary atherosclerosis, essential hypertension, fracture of neck of left femur, hyperlipidemia, ischemic cardiomyopathy, DM, NSTEMI, polymyalgia rheumatica, rosacea, ventricular fibrillation. Surgical hx: BKA left, , cholecystectomy, cataract. PREVIOUS FUNCTIONAL STATUS/SOCIAL/FAMILY SUPPORTS:: Cris lives in her own home in a [facility] in [place], [place]. She has two children that are grown and several friends in her community that are supportive. Cris drives has her own transportation and is independent with ADL's. CURRENT FUNCTIONAL STATUS:: Cris is sitting up in the chair she is alert and engaged with CM during assessment. She feels that she is ready to return home. She reviews events that led to admission including symptoms of ringing in her ears. She feels that her symptoms have resolved. ADVANCE DIRECTIVES:: On file at [facility] Has patient been provided with information about the portal?: Yes Did the patient sign up for the portal?: Yes (enrolled ) CODE STATUS:: DNR/DNI INSURANCE COVERAGE / FINANCIAL ISSUES:: Medicare and [employer] CURRENT HOME/COMMUNITY SERVICES/EQUIPMENT:: Cris has a cane and she receives services through [facility] on againg and [facility] POTENTIAL DISCHARGE NEEDS:: Follow up appointment with neurology and primary care prior to discharge. PATIENT/FAMILY EDUCATION NEEDS:: Discharge limitations, follow up plan of care, and ask me three discussion including self managment. ANTICIPATED BARRIERS TO DISCHARGE:: None identified. TRANSPORTATION:: Via private car with friend at time of discharge. PLAN:: Cris will be discharged home when medically ready per provider. She will have a neurology consult she continues on telemetry at this time. She will transport home with friend at time of discharge. No addtional services at this time.
--- NOTE | 2018-07-05 16:15 | CHAPLAIN ---
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 She was pleasant and open to conversation. Following a heart attack, Cris said she sold her home and moved into a trailer park in [place] and enjoys living there. She attends [employer] [facility] [employer] and I let her know that Fr. Judge or Fr. Arnold will likely be in today to visit. Cris identified her two children as supports and has been in touch with them by phone. She said [employer] staff have been very kind. She expects to be discharged soon.
--- NOTE | 2018-07-05 17:06 | DSE_ITS ---
Date of service: 07/05/18 Time of Service: 17:06 DS: Diagnosis Discharge Diagnosis (1) Slurred speech: Status: Acute (2) Non-ST elevation (NSTEMI) myocardial infarction: Status: Acute (3) Fracture of neck of left femur: Status: Acute (4) Ventricular fibrillation: Status: Acute (5) Amputated below knee: Status: Acute (6) Type 2 diabetes mellitus: Status: Acute (7) Discharge planning issues: Status: Acute (8) PVD (peripheral vascular disease): Status: Acute (9) Rosacea: Status: Acute (10) Polymyalgia rheumatica: Status: Acute (11) Essential hypertension: Status: Acute (12) Hyperlipidemia: Status: Acute (13) Diabetes mellitus: Status: Acute (14) Cellulitis and abscess of unspecified site: Status: Acute (15) Cataract: Status: Acute (16) Carpal tunnel syndrome, unspecified upper limb: Status: Acute (17) Cardiac defibrillator in place: Status: Acute (18) Benign neoplasm of colon: Status: Acute (19) Ischemic cardiomyopathy: Status: Acute Discharge Plan Disposition Patient Disposition: HOME Condition: Serious Discharge Details Reason For Visit: TIA Admit Date/Time: 07/04/18 12:03 Admit Provider: Josef Erazo Attending Provider: Josef Erazo Primary Care Provider: Gema Guidry Hospital Course Hospital Course: Cris Beltran is an 78 year old female with a complicated past medical history including NSTEMI with 6 stents placed at [facility] 3 years ago, complicated by cardiac puncture and pneumothorax, Vtach, s/p ICD implantation. Her LVEF is 25-30%. She also has a history of diabetes with left BKA. presented to the ED yesterday after she experienced 3 very brief episodes of slurred speech while on the phone with her daughter on the morning of her admission. She was also experiencing ringng in the ears at that time. She reported being in her usual state of health prior. She denied any headache, dizziness, vision changes, coordination or gait problems, no chest pain/pressure, palpitations, shortness of breath, coughing, wheezing, no nausea, vomiting, diarrhea or constipation. She denied any urinary symptoms. Work up in the ED included labs which revealed an elevated BUN and creatinine of 22 and 1.04, without any other abnormalities. She had a CT head that showed no acute process. Chest x-ray showed no evidence of acute cardiopulmonary disease. She could not have MRI due to pacer/ICD. She was admitted to the floor for further observation and management. She was monitored on telemetry, she was atrially paced with LBBB. She went on to have a carotid artery ultrasound which revealed mild to moderate plaque in the right carotid bulb and proximal ICA. Moderate to severe plaque is noted in the left carotid bulb and proximal ICA and mid portion of the common carotid artery. Bilateral antegrade flow is noted in the vertebrals. No evidence of greater than 50% stenosis in the carotid vessels. Echocardiogram revealed LVEF of 60-65%, no apical thrombus, some diastolic dysfunction (PER VERBAL REPORT FROM DR. HEATON)- see full report for details. Her triglycerides came back at 123, total cholesterol 144, LDL 86, HDL 42. TSH slightly elevated at 4.27. Hgb A1c 5.4. She has not had recurrence of her symptoms. Her case was discussed with Neurology at [facility] who recommended that if her echo comes back without thrombus, she can remain on dual antiplatelet therapy with aspirin and plavix with extended cardiac monitoring and follow up. Another option would to consider anticoagulation with antiplatelet, however, she has a left BKA, wears a prosthesis, and has had falls in the past, including a fall in May of this year that resulted in a left hip fracture. Her history of falls should be considered when deciding whether or not to anticoagulate. Home Meds and New Rx's Prescriptions: New atorvastatin 40 mg tablet 40 mg PO DAILY Qty: 30 RF: 0 Continue ascorbic acid (vitamin C) 500 MG tablet 500 mg PO DAILY RF: 0 aspirin [Aspirin Low-Strength] 81 MG tablet,chewable 81 mg PO DAILY RF: 0 ipratropium bromide [Atrovent] 30 ML spray,non-aerosol 2 spry NS BID PRN Qty: 1 RF: 11 cholecalciferol (vitamin D3) [Vitamin D3] 2,000 UNIT tablet 2,000 unit PO DAILY RF: 0 acetaminophen [Tylenol Extra Strength] 500 MG tablet 1,000 mg PO PRN RF: 0 calcium carbonate 500 MG tablet 1,500 mg PO DAILY RF: 0 [id number] carb-vit K [Women's 50 Plus Daily Formula] 1 EACH tablet 1 ea PO DAILY RF: 0 mupirocin [Bactroban] 22 GM ointment 1 darleen Topical DAILY Qty: 22 RF: 2 cinnamon bark-chromium picolin 1 EACH capsule 500 mg PO DAILY RF: 0 blood sugar diagnostic [FreeStyle Lite Strips] 1 EACH strip 1 strip Miscellaneous DAILY Qty: 100 RF: 4 clopidogrel 75 MG tablet 75 mg PO DAILY Qty: 90 RF: 4 metformin 500 MG tablet 500 mg PO qPM Qty: 90 RF: 4 nitroglycerin 0.4 MG tablet, sublingual 0.4 mg Sublingual Q 5 MIN PRN Qty: 25 RF: 11 mexiletine 200 MG capsule 200 mg PO TID Qty: 270 RF: 4 [place]-3S/Dha/Epa/Fish Oil [Fish Oil 1,000 mg Softgel] 1 EACH capsule 1 ea PO DAILY RF: 0 meclizine 25 MG tablet,chewable 25 mg PO BID Qty: 25 RF: 0 Metoprolol Succinate 50 MG TAB.ER.24H 50 mg PO DAILY Qty: 90 RF: 4 lancets 1 EACH misc 1 ea Miscellaneous DAILY Qty: 100 RF: 4 amiodarone 200 MG tablet 200 mg PO DAILY Qty: 90 RF: 3 levothyroxine 75 MCG tablet 75 mcg PO 4 days a week Qty: 60 RF: 3 levothyroxine 50 MCG tablet 50 mcg PO DAILY Qty: 30 RF: 2 losartan 50 MG tablet 50 mg PO DAILY Qty: 90 RF: 4 emollient [Vanicream] 18,200 GM cream 18,200 gm Topical BID Qty: 1 RF: 0 Discontinued Atorvastatin Calcium 20 MG tablet 20 mg PO DAILY Qty: 90 RF: 3 Discharge Instructions Instructions: Transient Ischemic Attack (DC) Additional Instructions: Your echo revealed no thrombus and you ejection fraction is now 60-65% (improved !) Continue your usual medication. Your atorvastatin has been increased from 20 mg/day to 40 mg/day. Follow up with neurology as scheduled. Follow up with your PCP as scheduled. Follow up with cardiology as scheduled. Take care! Stand Alone Forms: Nursing Discharge Form Referrals: Gema Guidry MD [Primary Care Provider] - 07/10/18 2:20 pm Alanis Ledezma MD [ [facility] STAFF PHYSICIAN] - 07/18/18 1:45 pm Activity:: Activity as Tolerated Equipment/Supplies:: No Equipment Needed Diet:: As Tolerated Discharge Orders Discharge Orders: Discharge Order (Routine); Ordered 07/05/18 Ordered By: Swati Andrade Exam Const General: cooperative, healthy appearing, comfortable and no acute distress Orientation: alert, awake and oriented x3 HENMT Head: normocephalic and atraumatic Resp Effort & Inspection: normal respiratory effort Auscultation: clear to auscultation bilaterally Cardio Rate: regular rate Rhythm: regular rhythm Heart Sounds: no murmurs Pulses: normal peripheral pulses GI Palpation: soft, no masses and nontender Auscultation: normal bowel sounds Skin General skin exam: no rashes or lesions noted Neuro General: moves all extremities Cognition: normal cognition Speech: speech normal Motor: strength 5/5 throughout Extrem General: no clubbing, cyanosis or edema DS: Data Vitals/I&O Vitals and I&O: Vital Signs Temperature 36.0 C L 07/05/18 15:25 Temperature Source Tympanic 07/05/18 15:25 Pulse 71 07/05/18 15:25 Pulse Rhythm Regular 07/05/18 10:00 Pulse 70 07/04/18 13:10 Respiratory Rate 18 07/05/18 15:25 Respiratory Effort Non-Labored 07/05/18 10:00 Respiratory Depth Normal 07/05/18 10:00 Respiratory Pattern Normal 07/05/18 10:00 Blood Pressure 106/62 07/05/18 15:25 Pulse Oximetry 100 07/05/18 15:25 Oxygen Delivery Method Room Air 07/05/18 15:25 Oxygen Flow Rate 0 07/05/18 15:25 Pain Level 0 07/05/18 11:25 Intake & Output 07/04/18 07/05/18 07/05/18 23:59 11:59 23:59 Intake Total 480 / 480 490 / 490 Output Total 450 / 450 400 / 400 Balance 30 / 30 -400 / -400 490 / 490 Weight 65.4 kg Intake: Oral 480 / 480 490 / 490 Output: Urine 450 / 450 400 / 400 Other: Urine Color Yellow Yellow Urine Appearance Clear Clear Urine Odor None Voiding Methods Bedside Commode Bedside Commode Completed studies during hospitalization [Text1]: 07/04/2018: CRANIAL CT: A noncontrast enhanced examination was performed. Atrophic changes consistent with age are identified. There is no evidence of an intra or extra-axial hemorrhage, mass or edema. Small regions of diminished absorption in the frontoparietal white matter would be consistent with small vessel disease. The ventricles are normal. There is no evidence of a skull fracture. The paranasal sinuses appear intact. There is no evidence of a mastoid effusion. SUMMARY: No acute intracranial abnormality is demonstrated. PA AND LATERAL CHEST: The lungs are free of infiltrate. There is no pleural effusion. The cardiovascular structures are intact. Pacing wires are in stable position when compared with prior images dating back to 04/25/16. SUMMARY: No evidence of acute cardiopulmonary disease CAROTID ULTRASOUND: There is mild to moderate plaque in the right carotid bulb and proximal ICA. Moderate to severe plaque is noted in the left carotid bulb and proximal ICA and mid portion of the common carotid artery. Bilateral antegrade flow is noted in the vertebrals. There is no evidence of greater than 50% stenosis in the carotid vessels. ECHO: LVEF: 60-65%, no apical thrombus. see report. Labs on day of discharge: Labs from last 24 hours 07/05/18 07/05/18 07/05/18 06:20 06:20 06:20 WBC 6.26 RBC 3.89 L Hgb 13.1 Hct 40.2 MCV 103.3 H MCH 33.7 H MCHC 32.6 RDW 14.3 Plt Count 188 MPV 10.2 Immature Gran % 0.0 Neutrophils % 49.4 Lymphocytes % 35.5 Monocytes % 8.9 Eosinophils % 5.4 Basophils % 0.8 Absolute Neutrophils 3.09 Absolute Lymphocytes 2.22 Absolute Monocytes 0.56 Absolute Eosinophils 0.34 Absolute Basophils 0.05 Sodium 140 Potassium 4.2 Chloride 106 Carbon Dioxide 25.5 Anion Gap 8.5 BUN 20 H Creatinine 1.10 H Estimated GFR/1.73 m2 47.79 Glucose 103 H Hemoglobin A1c 5.4 Calcium 9.2 Triglycerides 123 Total Cholesterol 144 LDL Cholesterol Direct 86 HDL Cholesterol 42 TSH 4.27 H 07/05/18 06:20 WBC RBC Hgb Hct MCV MCH MCHC RDW Plt Count MPV Immature Gran % Neutrophils % Lymphocytes % Monocytes % Eosinophils % Basophils % Absolute Neutrophils Absolute Lymphocytes Absolute Monocytes Absolute Eosinophils Absolute Basophils Sodium Potassium Chloride Carbon Dioxide Anion Gap BUN Creatinine Estimated GFR/1.73 m2 Glucose Hemoglobin A1c Calcium Triglycerides Cancelled Total Cholesterol Cancelled LDL Cholesterol Direct Cancelled HDL Cholesterol Cancelled TSH Cancelled
== END 2018-07-05 18:53 | disposition home or self-care (01) ==
LOC: ER 13:21 → MS 13:27
PROVIDERS: Admitting Provider Internal Medicine; Emergency Provider Student in an Organized Health Care Education/Training Program; PCP Internal Medicine; Visit Provider Internal Medicine
DX: R47.81 Slurred speech (principal); Z95.0 Presence of cardiac pacemaker; I25.2 Old myocardial infarction; Z95.5 Presence of coronary angioplasty implant and graft; E11.51 Type 2 diabetes mellitus with diabetic peripheral angiopathy without gangrene; Z89.512 Acquired absence of left leg below knee; H93.13 Tinnitus, bilateral; Z91.81 History of falling; E03.9 Hypothyroidism, unspecified; S72.002D Fracture of unspecified part of neck of left femur, subsequent encounter for closed fracture with routine healing; X58.XXXD Exposure to other specified factors, subsequent encounter; I49.01 Ventricular fibrillation
CPT/HCPCS: 36415; 80048; 80053; 80061; 80076; 83721; 93005; 93306; 99222; 99239; 99285; J1650; 70450; 71046; 81003; 81015; 83036; 83735; 84443; 84484; 85025; 93010; 93880; 99217; 99219; G0378

== ENCOUNTER → 2018-07-18 13:25 | Outpatient (BNVA) | payer MEDICARE, SELFPAY | PROVIDERS: PCP Internal Medicine; Referring Provider Nurse Practitioner; Visit Provider Psychiatry & Neurology Neurology | DX: R47.81 Slurred speech (principal); I10 Essential (primary) hypertension; E11.9 Type 2 diabetes mellitus without complications; J44.9 Chronic obstructive pulmonary disease, unspecified | CPT/HCPCS: 99205; 99215 ==

== ENCOUNTER 2019-02-22 10:19 | Emergency (ER) | payer MEDICARE, SELFPAY ==
[2019-02-22 10:23] VITALS: BP 142/54; PULSE 72; RESP 16; TEMP 36.4; O2SAT 100
[2019-02-22] MEDS: Silver Nitrate Stick 1 EACH (11:29)
--- NOTE | 2019-02-22 12:10 | ED.GENADUL_ITS ---
Discharge Plan Disposition Patient Disposition: HOME Condition: Improving Discharge Details Chief Complaint: Laceration Clinical Impression: Bleeding pigmented skin lesion Primary Care Provider: Gema Guidry ED Provider: Clarice Munson Home Meds and New Rx's Prescriptions: Continued omega-3 fatty acids [Fish Oil Concentrate] 1,000 mg capsule 1,000 mg PO DAILY RF: 0 B-complex with vitamin C tablet 1 tab PO DAILY RF: 0 levothyroxine 75 mcg capsule 75 mcg PO DAILY Qty: 90 RF: 3 clopidogrel 75 mg tablet 75 mg PO DAILY Qty: 90 RF: 4 aspirin [Aspirin Low-Strength] 81 MG tablet,chewable 81 mg PO DAILY RF: 0 ipratropium bromide [Atrovent] 30 ML spray,non-aerosol 2 spry NS BID PRN Qty: 1 RF: 11 cholecalciferol (vitamin D3) [Vitamin D3] 2,000 UNIT tablet 2,000 unit PO DAILY RF: 0 acetaminophen [Tylenol Extra Strength] 500 MG tablet 1,000 mg PO PRN RF: 0 calcium carbonate 500 MG tablet 1,500 mg PO DAILY RF: 0 Women's 50 Plus Daily Formula 1 EACH tablet 1 ea PO DAILY RF: 0 cinnamon bark-chromium picolin 1 EACH capsule 500 mg PO DAILY RF: 0 FreeStyle Lite Strips 1 EACH strip 1 strip Miscellaneous DAILY Qty: 100 RF: 4 nitroglycerin 0.4 MG tablet, sublingual 0.4 mg Sublingual Q 5 MIN PRN Qty: 25 RF: 11 losartan 50 MG tablet 50 mg PO DAILY Qty: 90 RF: 4 emollient [Vanicream] 18,200 GM cream 18,200 gm Topical BID Qty: 1 RF: 0 mexiletine 200 mg capsule 200 mg PO TID Qty: 270 RF: 4 ascorbic acid (vitamin C) 500 mg tablet 1,000 mg PO DAILY RF: 0 atorvastatin 40 mg tablet 40 mg PO DAILY Qty: 90 RF: 3 metoprolol succinate 50 mg tablet extended release 24 hr 50 mg PO DAILY Qty: 90 RF: 3 amiodarone 200 mg tablet 200 mg PO DAILY Qty: 90 RF: 3 lancets 28 gauge misc 1 ea Miscellaneous DAILY Qty: 100 RF: 4 meclizine 25 MG tablet,chewable 25 mg PO BID PRNRF: 0 Discharge Instructions Instructions: Skin Adhesive Care (ED) Additional Instructions: Do not cover the Dermabond glue with Band-Aid, topical antibiotic ointment, or soak in water. Let the Dermabond fall off naturally as the wound heals underneath. Follow-up with your primary care doctor next week for wound check. Return to the emergency department if you develop any worsening or new concerning symptoms. Discharge Data Discharge Physician: Clarice Munson Medical Decision Making 78-year-old female with history of coronary artery disease on aspirin and Plavix who presents with bleeding lesion to left lateral neck since last night. There is a 1 x 1 cm lesion to the left lateral neck consistent with a seborrheic keratoses which is noted to have a small 1 x 3 mm area of oozing bleeding at 1 o'clock. No signs of infection or other significant trauma. 2 silver nitrate sticks were applied to area without any significant improvement. The area was injected with lidocaine with epinephrine for vasoconstriction which stopped the bleeding. The area was subsequently covered with Dermabond glue. Patient was observed for approximately 45 minutes following this and there was no further bleeding. Patient denied any acute complaints and felt good to go home. She is instructed to follow-up with the primary care doctor for reevaluation and to return here if worse. HPI General Mode of arrival: ambulatory . Date/Time Provider Initiated Documentation: 02/22/19 10:27 . Limitations to Documentation: no limitations . Information obtained by: patient . 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 She states it started last night and has been continuing to bleed since then. She states she has been unable to stop it with pressure and a Band-Aid. She states she is on aspirin and Plavix for history of coronary artery disease. She denies any fever, dizziness, chest pain or shortness of breath. Related Data Home Medications Medication Instructions Recorded Confirmed aspirin [Aspirin Low-Strength] 81 mg PO DAILY tab-cap 01/01/13 02/22/19 cholecalciferol (vitamin D3) 2,000 unit PO DAILY 01/01/13 02/22/19 [Vitamin D3] ipratropium bromide [Atrovent] 2 spry NS BID PRN #1 spray 01/01/13 02/22/19 acetaminophen [Tylenol Extra 1,000 mg PO PRN tab-cap 02/20/14 02/22/19 Strength] calcium carbonate 1,500 mg PO DAILY 05/07/15 02/22/19 Women's 50 Plus Daily Formula 1 ea PO DAILY 07/02/15 02/22/19 cinnamon bark-chromium picolin 500 mg PO DAILY 01/28/16 02/22/19 FreeStyle Lite Strips #100 strip 03/20/17 11/13/18 nitroglycerin 0.4 mg SUBLINGUAL Q 5 MIN PRN #25 05/28/17 02/22/19 tab-cap losartan 50 mg PO DAILY #90 tab-cap 04/26/18 02/22/19 emollient [Vanicream] 18,200 gm TOPICAL BID #1 tub 05/06/18 02/22/19 mexiletine 200 mg capsule 200 mg PO TID #270 tab-cap 07/08/18 02/22/19 clopidogrel 75 mg tablet 75 mg PO DAILY #90 tab-cap 07/10/18 02/22/19 levothyroxine 75 mcg capsule 75 mcg PO DAILY #90 cap 07/10/18 02/22/19 B-complex with vitamin C tablet 1 tab PO DAILY 07/18/18 02/22/19 ascorbic acid (vitamin C) 500 mg 1,000 mg PO DAILY tab 07/18/18 02/22/19 tablet omega-3 fatty acids 1,000 mg 1,000 mg PO DAILY 07/18/18 02/22/19 capsule atorvastatin 40 mg tablet 40 mg PO DAILY #90 tab 09/22/18 02/22/19 metoprolol succinate ER 50 mg 50 mg PO DAILY #90 tab 09/27/18 02/22/19 tablet,extended release 24 hr amiodarone 200 mg tablet 200 mg PO DAILY #90 tab-cap 09/30/18 02/22/19 lancets 28 gauge #100 each 11/19/18 meclizine 25 mg PO BID PRN 02/22/19 02/22/19 Previous Rx's Medication Instructions Recorded losartan 50 mg PO DAILY #90 tab-cap 04/26/18 emollient [Vanicream] 18,200 gm TOPICAL BID #1 tub 05/06/18 mexiletine 200 mg capsule 200 mg PO TID #270 tab-cap 07/08/18 clopidogrel 75 mg tablet 75 mg PO DAILY #90 tab-cap 07/10/18 levothyroxine 75 mcg capsule 75 mcg PO DAILY #90 cap 07/10/18 atorvastatin 40 mg tablet 40 mg PO DAILY #90 tab 09/22/18 metoprolol succinate ER 50 mg 50 mg PO DAILY #90 tab 09/27/18 tablet,extended release 24 hr amiodarone 200 mg tablet 200 mg PO DAILY #90 tab-cap 09/30/18 lancets 28 gauge #100 each 11/19/18 Allergies Allergy/AdvReac Type Severity Reaction Status Date / Time lisinopril AdvReac Unknown COUGH Unverified 02/22/19 10:28 SCALLOP AdvReac Intermediate DIZZINESS, Uncoded 02/22/19 10:28 LIGHTHEADED General Stated Complaint: Laceration LADAN: 4 Review of Systems Review of Systems All systems reviewed & are unremarkable except as noted in HPI and below Constitutional Reports as per HPI, Denies chills and Denies fever(s) Eyes Denies blurry vision ENT Denies dizziness, Denies sore throat and Denies throat swelling Cardiovascular Denies chest pain and Denies dyspnea Respiratory Denies cough and Denies dyspnea Gastrointestinal Denies abdominal pain, Denies diarrhea and Denies vomiting Genitourinary Denies hematuria and Denies dysuria Musculoskeletal Denies back pain and Denies numbness Integumentary/Breasts Reports lesions and Denies rash Neurologic Denies dizziness, Denies focal weakness and Denies numbness Allergic/Immunologic Denies throat swelling [facility] Medical History PVD (peripheral vascular disease) (Acute) Ventricular tachycardia (Resolved) Ventricular fibrillation (Acute 03/16/15) Sciatic nerve pain (Acute) Rosacea (Acute) Polymyalgia rheumatica (Acute) Non-ST elevation (NSTEMI) myocardial infarction (Acute) Essential hypertension (Acute) Hyperlipidemia (Acute 02/04/13) Fracture of neck of left femur (Acute 05/12/18) Claudication (Acute) Chronic rhinitis (Acute 01/29/14) Cellulitis and abscess of unspecified site (Acute) Cataract (Acute) Carpal tunnel syndrome, unspecified upper limb (Acute) Coronary atherosclerosis (Acute) History of ventricular tachycardia (Acute) Ischemic cardiomyopathy (Acute) Type 2 diabetes mellitus (Acute) Surgical History Amputated below knee (Acute 08/16/13) CYST-lower back section Cholecystectomy Extraction of cataract LEFT LEG (~04/2013) Ligation of fallopian tube Open Carpal Tunnel release (~07/2008) Family History Mother Stroke Father Essential hypertension Heart disease Sister Diabetes Grandfather No problems noted. Grandfather No problems noted. Grandmother No problems noted. Grandmother No problems noted. FAMILY HISTORY Stroke Sister Diabetes Essential hypertension Neoplasm Sister Diabetes Essential hypertension Stroke Son No problems noted. Daughter No problems noted. Social History Smoking/Tobacco Use Status: Former Tobacco Use Alcohol Intake: never Drug use: Never Substance use type: does not use Household members: none Number of Children: 2 Do you feel safe at home: Yes Do you feel safe in your relationship?: Yes History History Para 2 Hx # Term Pregnancies Multiple births Hx # Pregnancies Ectopic pregnancies AB induced Hx Number of Living Children AB spontaneous Exam Const General: cooperative, healthy appearing and no acute distress HENMT Head: normal to inspection Mouth: oral mucosae normal Eyes General: appearance normal, both eyes and all related structures Neck Neck: normal visual inspection Resp Effort & Inspection: normal respiratory effort and able to speak in complete sentences Cardio Rate: regular rate Skin Other: 1 x 1 cm raised brown papule consistent with a seborrheic keratoses to the left lateral neck. There is noted to be a 1 x 4 mm area of active oozing bleeding. No pulsatile or projectile bleeding. No expanding hematoma. No signs of erythema, edema, ecchymosis, induration or fluctuance. Neuro General: alert, awake and oriented x3 Motor: muscle tone normal throughout Extrem General: normal to inspection and full ROM Psych Appearance: grossly normal Affect: normal affect Course Vital Signs Temperature 97.5 F L 02/22/19 10:23 Pulse 72 02/22/19 10:23 Respiratory Rate 16 02/22/19 10:23 Blood Pressure 142/54 H 02/22/19 10:23 Pulse Oximetry 100 02/22/19 10:23 Temperature 97.5 F L 02/22/19 10:23 Temperature Source Skin 02/22/19 10:23 Pulse 72 02/22/19 10:23 Respiratory Rate 16 02/22/19 10:23 Blood Pressure 142/54 H 02/22/19 10:23 Blood Pressure Position Sitting 02/22/19 10:23 Pulse Oximetry 100 02/22/19 10:23 Oxygen Delivery Method Room Air 02/22/19 10:23 Oxygen Flow Rate 0 02/22/19 10:23 Pain Level 0 02/22/19 10:23
[2019-02-22 13:04] VITALS: BP 120/54; PULSE 79; RESP 16; TEMP 36.3; O2SAT 99
== END 2019-02-22 13:11 | disposition home or self-care (01) ==
PROVIDERS: Emergency Provider Physician Assistant; PCP Internal Medicine
DX: S11.81XA Laceration without foreign body of other specified part of neck, initial encounter (principal); X58.XXXA Exposure to other specified factors, initial encounter; Z79.01 Long term (current) use of anticoagulants; Z79.82 Long term (current) use of aspirin; E11.9 Type 2 diabetes mellitus without complications; I10 Essential (primary) hypertension
CPT/HCPCS: 12001

== ENCOUNTER 2019-03-14 18:45 | Emergency (ER) | payer MEDICARE, SELFPAY ==
[2019-03-14 18:49] VITALS: BP 117/35; PULSE 76; RESP 16; TEMP 36.8; O2SAT 97
--- NOTE | 2019-03-14 19:28 | W.ED.GENAD ---
Discharge Plan Disposition Patient Disposition: HOME Condition: Good Discharge Details Chief Complaint: Orthopedic Clinical Impression: Closed fracture of greater trochanter of left femur Primary Care Provider: Gema Guidry ED Provider: Bartolo Schofield Home Meds and New Rx's Prescriptions: No Action omega-3 fatty acids [Fish Oil Concentrate] 1,000 mg capsule 1,000 mg PO DAILY RF: 0 B-complex with vitamin C tablet 1 tab PO DAILY RF: 0 levothyroxine 75 mcg capsule 75 mcg PO DAILY Qty: 90 RF: 3 clopidogrel 75 mg tablet 75 mg PO DAILY Qty: 90 RF: 4 aspirin [Aspirin Low-Strength] 81 MG tablet,chewable 81 mg PO DAILY RF: 0 ipratropium bromide [Atrovent] 30 ML spray,non-aerosol 2 spry NS BID PRN Qty: 1 RF: 11 cholecalciferol (vitamin D3) [Vitamin D3] 2,000 UNIT tablet 2,000 unit PO DAILY RF: 0 acetaminophen [Tylenol Extra Strength] 500 MG tablet 1,000 mg PO PRN RF: 0 calcium carbonate 500 MG tablet 1,500 mg PO DAILY RF: 0 Women's 50 Plus Daily Formula 1 EACH tablet 1 ea PO DAILY RF: 0 cinnamon bark-chromium picolin 1 EACH capsule 500 mg PO DAILY RF: 0 FreeStyle Lite Strips 1 EACH strip 1 strip Miscellaneous DAILY Qty: 100 RF: 4 nitroglycerin 0.4 MG tablet, sublingual 0.4 mg Sublingual Q 5 MIN PRN Qty: 25 RF: 11 losartan 50 MG tablet 50 mg PO DAILY Qty: 90 RF: 4 emollient [Vanicream] 18,200 GM cream 18,200 gm Topical BID Qty: 1 RF: 0 mexiletine 200 mg capsule 200 mg PO TID Qty: 270 RF: 4 ascorbic acid (vitamin C) 500 mg tablet 1,000 mg PO DAILY RF: 0 atorvastatin 40 mg tablet 40 mg PO DAILY Qty: 90 RF: 3 metoprolol succinate 50 mg tablet extended release 24 hr 50 mg PO DAILY Qty: 90 RF: 3 amiodarone 200 mg tablet 200 mg PO DAILY Qty: 90 RF: 3 lancets 28 gauge misc 1 ea Miscellaneous DAILY Qty: 100 RF: 4 meclizine 25 MG tablet,chewable 25 mg PO BID PRNRF: 0 Discharge Instructions Additional Instructions: call orthopedics on sunday for an appointment if you have new pain such as abdominal pain, chest pain or feel more ill return to the emergency department for reevaluation use the crutches or walker when ambulating Medical Decision Making 79 yo female who has a hx of a left hip fx last year and had a fall 2 days ago after she slipped and landed on her left hip. Denies loc and no headache or vomit. HAs pain over the left hip, does have good rom and is bearing weight though with pain. No erythema, warmth or fevers so doubt septic joint. Will xray to eval for fx though suspect contusion xray shows left greater trochanter fracture. Spoke with Dr. branch who states she can use a walker or 2 crutches and f/u with them in 2 weeks. Pt states she has these at home and doesn't need any more pain meds, will d/c home Differential Diagnosis contusion, sprain, strain Medical Records Medical records reviewed: Yes I reviewed the patient's medical records. Imaging Data Radiologic Study: Attestation: I personally reviewed and interpreted this imaging study as follows: Imaging: X-Ray Radiologist's impression: IMPRESSION: 1. The left greater trochanter has a somewhat fragmented appearance on the frog-leg lateral view which was not clearly present on the radius preoperative radiographs from 2018, and raises concern for acute element of mildly displaced to nondisplaced trochanteric fracture. Consider CT for confirmation if clinically indicated. MILAD SWANN Preliminary Radiology Report UNDERWEAR TRIMMER (QA) DISCREPANCY? If there is a discrepancy between the preliminary and final interpretation, please notify [facility] via [email or web address]. If you do not have access to our QA portal, call our QA team at [phone] CONFIDENTIALITY STATEMENT This report is intended only for the use of the referring physician, and only in accordance with law, If you received this in error, call [phone] Page 2 of 2 2. No other potential fractures. 3. No evidence of associated hardware breakage, displacement, or loosening. 4. Diffuse osteopenia. HPI General Mode of arrival: wheelchair. Date/Time Provider Initiated Documentation: 03/14/19 18:46. Limitations to Documentation: no limitations. Information obtained by: patient. History of Present Illness 79 year old F presents to the emergency department with the chief complaint of left hip pain, described as moderate, Quality is described as aching, Patient started experiencing this day(s) (2) and it has been constant. Rest improves symptom(s), Movement worsens symptoms . Patient notes no other symptoms.. Patient did receive the following treatments prior to arrival, none Related Data Home Medications Medication Instructions Recorded Confirmed aspirin [Aspirin Low-Strength] 81 mg PO DAILY tab-cap 01/01/13 03/14/19 cholecalciferol (vitamin D3) 2,000 unit PO DAILY 01/01/13 03/14/19 [Vitamin D3] ipratropium bromide [Atrovent] 2 spry NS BID PRN #1 spray 01/01/13 03/14/19 acetaminophen [Tylenol Extra 1,000 mg PO PRN tab-cap 02/20/14 03/14/19 Strength] calcium carbonate 1,500 mg PO DAILY 05/07/15 03/14/19 Women's 50 Plus Daily Formula 1 ea PO DAILY 07/02/15 03/14/19 cinnamon bark-chromium picolin 500 mg PO DAILY 01/28/16 03/14/19 FreeStyle Lite Strips #100 strip 03/20/17 02/24/19 nitroglycerin 0.4 mg SUBLINGUAL Q 5 MIN PRN #25 05/28/17 03/14/19 tab-cap losartan 50 mg PO DAILY #90 tab-cap 04/26/18 03/14/19 emollient [Vanicream] 18,200 gm TOPICAL BID #1 tub 05/06/18 03/14/19 mexiletine 200 mg capsule 200 mg PO TID #270 tab-cap 07/08/18 03/14/19 clopidogrel 75 mg tablet 75 mg PO DAILY #90 tab-cap 07/10/18 03/14/19 levothyroxine 75 mcg capsule 75 mcg PO DAILY #90 cap 07/10/18 03/14/19 B-complex with vitamin C tablet 1 tab PO DAILY 07/18/18 03/14/19 ascorbic acid (vitamin C) 500 mg 1,000 mg PO DAILY tab 07/18/18 03/14/19 tablet omega-3 fatty acids 1,000 mg 1,000 mg PO DAILY 07/18/18 03/14/19 capsule atorvastatin 40 mg tablet 40 mg PO DAILY #90 tab 09/22/18 03/14/19 metoprolol succinate ER 50 mg 50 mg PO DAILY #90 tab 09/27/18 03/14/19 tablet,extended release 24 hr amiodarone 200 mg tablet 200 mg PO DAILY #90 tab-cap 09/30/18 03/14/19 lancets 28 gauge #100 each 11/19/18 02/24/19 meclizine 25 mg PO BID PRN 02/22/19 03/14/19 Previous Rx's Medication Instructions Recorded losartan 50 mg PO DAILY #90 tab-cap 04/26/18 emollient [Vanicream] 18,200 gm TOPICAL BID #1 tub 05/06/18 mexiletine 200 mg capsule 200 mg PO TID #270 tab-cap 07/08/18 clopidogrel 75 mg tablet 75 mg PO DAILY #90 tab-cap 07/10/18 levothyroxine 75 mcg capsule 75 mcg PO DAILY #90 cap 07/10/18 atorvastatin 40 mg tablet 40 mg PO DAILY #90 tab 09/22/18 metoprolol succinate ER 50 mg 50 mg PO DAILY #90 tab 09/27/18 tablet,extended release 24 hr amiodarone 200 mg tablet 200 mg PO DAILY #90 tab-cap 09/30/18 lancets 28 gauge #100 each 11/19/18 Allergies Allergy/AdvReac Type Severity Reaction Status Date / Time lisinopril AdvReac Unknown COUGH Unverified 03/14/19 18:56 SCALLOP AdvReac Intermediate DIZZINESS, Uncoded 03/14/19 18:56 LIGHTHEADED General Stated Complaint: Orthopedic LADAN: 3 Review of Systems Review of Systems All systems reviewed & are unremarkable except as noted in HPI and below Constitutional Denies chills, Denies fever(s) and Denies weakness Cardiovascular Denies chest pain and Denies dyspnea Respiratory Denies cough and Denies dyspnea Gastrointestinal Denies abdominal pain, Denies nausea and Denies vomiting Integumentary/Breasts Denies rash Neurologic Denies weakness [facility] Social History Smoking/Tobacco Use Status: Former Tobacco Use Alcohol Intake: never Drug use: Never Substance use type: does not use Household members: none Number of Children: 2 Do you feel safe at home: Yes Do you feel safe in your relationship?: Yes History History Para 2 Hx # Term Pregnancies Multiple births Hx # Pregnancies Ectopic pregnancies AB induced Hx Number of Living Children AB spontaneous Exam Const General: no acute distress Orientation: alert HENMT Head: normal to inspection Ears: external ears normal General nose exam: external nose normal Mouth: moist mucous membranes Eyes General: appearance normal, both eyes and all related structures Neck Neck: normal visual inspection Resp Effort & Inspection: normal respiratory effort and able to speak in complete sentences Cardio Rate: regular rate Skin General skin exam: no rashes or lesions noted Neuro General: alert and oriented x3 Extrem General: no joint enlargement Psych Mental Status: mental status grossly normal Course Vital Signs Temperature 36.8 C 03/14/19 18:49 Pulse 76 03/14/19 18:49 Respiratory Rate 16 03/14/19 18:49 Blood Pressure 117/35 L 03/14/19 18:49 Pulse Oximetry 97 03/14/19 18:49 Temperature 36.8 C 03/14/19 18:49 Temperature Source Temporal Artery Scan 03/14/19 18:49 Pulse 76 03/14/19 18:49 Respiratory Rate 16 03/14/19 18:49 Respiratory Effort 03/14/19 18:49 Blood Pressure 117/35 L 03/14/19 18:49 Pulse Oximetry 97 03/14/19 18:49 Oxygen Delivery Method Room Air 03/14/19 18:49 Oxygen Flow Rate 0 03/14/19 18:49 Pain Level 8 03/14/19 18:55
--- NOTE | 2019-03-14 19:32 | ED.GENADUL_ITS ---
Discharge Plan Disposition Patient Disposition: HOME Condition: Good Discharge Details Chief Complaint: Orthopedic Clinical Impression: Closed fracture of greater trochanter of left femur Primary Care Provider: Gema Guidry ED Provider: Bartolo Schofield Home Meds and New Rx's Prescriptions: No Action omega-3 fatty acids [Fish Oil Concentrate] 1,000 mg capsule 1,000 mg PO DAILY RF: 0 B-complex with vitamin C tablet 1 tab PO DAILY RF: 0 levothyroxine 75 mcg capsule 75 mcg PO DAILY Qty: 90 RF: 3 clopidogrel 75 mg tablet 75 mg PO DAILY Qty: 90 RF: 4 aspirin [Aspirin Low-Strength] 81 MG tablet,chewable 81 mg PO DAILY RF: 0 ipratropium bromide [Atrovent] 30 ML spray,non-aerosol 2 spry NS BID PRN Qty: 1 RF: 11 cholecalciferol (vitamin D3) [Vitamin D3] 2,000 UNIT tablet 2,000 unit PO DAILY RF: 0 acetaminophen [Tylenol Extra Strength] 500 MG tablet 1,000 mg PO PRN RF: 0 calcium carbonate 500 MG tablet 1,500 mg PO DAILY RF: 0 Women's 50 Plus Daily Formula 1 EACH tablet 1 ea PO DAILY RF: 0 cinnamon bark-chromium picolin 1 EACH capsule 500 mg PO DAILY RF: 0 FreeStyle Lite Strips 1 EACH strip 1 strip Miscellaneous DAILY Qty: 100 RF: 4 nitroglycerin 0.4 MG tablet, sublingual 0.4 mg Sublingual Q 5 MIN PRN Qty: 25 RF: 11 losartan 50 MG tablet 50 mg PO DAILY Qty: 90 RF: 4 emollient [Vanicream] 18,200 GM cream 18,200 gm Topical BID Qty: 1 RF: 0 mexiletine 200 mg capsule 200 mg PO TID Qty: 270 RF: 4 ascorbic acid (vitamin C) 500 mg tablet 1,000 mg PO DAILY RF: 0 atorvastatin 40 mg tablet 40 mg PO DAILY Qty: 90 RF: 3 metoprolol succinate 50 mg tablet extended release 24 hr 50 mg PO DAILY Qty: 90 RF: 3 amiodarone 200 mg tablet 200 mg PO DAILY Qty: 90 RF: 3 lancets 28 gauge misc 1 ea Miscellaneous DAILY Qty: 100 RF: 4 meclizine 25 MG tablet,chewable 25 mg PO BID PRNRF: 0 Discharge Instructions Additional Instructions: call orthopedics on sunday for an appointment if you have new pain such as abdominal pain, chest pain or feel more ill return to the emergency department for reevaluation use the crutches or walker when ambulating Medical Decision Making 79 yo female who has a hx of a left hip fx last year and had a fall 2 days ago after she slipped and landed on her left hip. Denies loc and no headache or vomit. HAs pain over the left hip, does have good rom and is bearing weight though with pain. No erythema, warmth or fevers so doubt septic joint. Will xray to eval for fx though suspect contusion xray shows left greater trochanter fracture. Spoke with Dr. branch who states she can use a walker or 2 crutches and f/u with them in 2 weeks. Pt states she has these at home and doesn't need any more pain meds, will d/c home Differential Diagnosis contusion, sprain, strain Medical Records Medical records reviewed: Yes I reviewed the patient's medical records. Imaging Data Radiologic Study: Attestation: I personally reviewed and interpreted this imaging study as follows: Imaging: X-Ray Radiologist's impression: IMPRESSION: 1. The left greater trochanter has a somewhat fragmented appearance on the frog- leg lateral view which was not clearly present on the radius preoperative radiographs from 2018, and raises concern for acute element of mildly displaced to nondisplaced trochanteric fracture. Consider CT for confirmation if clinically indicated. MILAD SWANN Preliminary Radiology Report ODD JOBS DAY WORKER (QA) DISCREPANCY? If there is a discrepancy between the preliminary and final interpretation, please notify [facility] via [email or web address]. If you do not have access to our QA portal, call our QA team at [phone] CONFIDENTIALITY STATEMENT This report is intended only for the use of the referring physician, and only in accordance with law, If you received this in error, call [phone] Page 2 of 2 2. No other potential fractures. 3. No evidence of associated hardware breakage, displacement, or loosening. 4. Diffuse osteopenia. HPI General Mode of arrival: wheelchair . Date/Time Provider Initiated Documentation: 03/14/19 18:46 . Limitations to Documentation: no limitations . Information obtained by: patient . History of Present Illness 79 year old F presents to the emergency department with the chief complaint of left hip pain, described as moderate, Quality is described as aching, Patient started experiencing this day(s) (2) and it has been constant. Rest improves symptom(s), Movement worsens symptoms . Patient notes no other symptoms.. Patient did receive the following treatments prior to arrival, none Related Data Home Medications Medication Instructions Recorded Confirmed aspirin [Aspirin Low-Strength] 81 mg PO DAILY tab-cap 01/01/13 03/14/19 cholecalciferol (vitamin D3) 2,000 unit PO DAILY 01/01/13 03/14/19 [Vitamin D3] ipratropium bromide [Atrovent] 2 spry NS BID PRN #1 spray 01/01/13 03/14/19 acetaminophen [Tylenol Extra 1,000 mg PO PRN tab-cap 02/20/14 03/14/19 Strength] calcium carbonate 1,500 mg PO DAILY 05/07/15 03/14/19 Women's 50 Plus Daily Formula 1 ea PO DAILY 07/02/15 03/14/19 cinnamon bark-chromium picolin 500 mg PO DAILY 01/28/16 03/14/19 FreeStyle Lite Strips #100 strip 03/20/17 02/24/19 nitroglycerin 0.4 mg SUBLINGUAL Q 5 MIN PRN #25 05/28/17 03/14/19 tab-cap losartan 50 mg PO DAILY #90 tab-cap 04/26/18 03/14/19 emollient [Vanicream] 18,200 gm TOPICAL BID #1 tub 05/06/18 03/14/19 mexiletine 200 mg capsule 200 mg PO TID #270 tab-cap 07/08/18 03/14/19 clopidogrel 75 mg tablet 75 mg PO DAILY #90 tab-cap 07/10/18 03/14/19 levothyroxine 75 mcg capsule 75 mcg PO DAILY #90 cap 07/10/18 03/14/19 B-complex with vitamin C tablet 1 tab PO DAILY 07/18/18 03/14/19 ascorbic acid (vitamin C) 500 mg 1,000 mg PO DAILY tab 07/18/18 03/14/19 tablet omega-3 fatty acids 1,000 mg 1,000 mg PO DAILY 07/18/18 03/14/19 capsule atorvastatin 40 mg tablet 40 mg PO DAILY #90 tab 09/22/18 03/14/19 metoprolol succinate ER 50 mg 50 mg PO DAILY #90 tab 09/27/18 03/14/19 tablet,extended release 24 hr amiodarone 200 mg tablet 200 mg PO DAILY #90 tab-cap 09/30/18 03/14/19 lancets 28 gauge #100 each 11/19/18 02/24/19 meclizine 25 mg PO BID PRN 02/22/19 03/14/19 Previous Rx's Medication Instructions Recorded losartan 50 mg PO DAILY #90 tab-cap 04/26/18 emollient [Vanicream] 18,200 gm TOPICAL BID #1 tub 05/06/18 mexiletine 200 mg capsule 200 mg PO TID #270 tab-cap 07/08/18 clopidogrel 75 mg tablet 75 mg PO DAILY #90 tab-cap 07/10/18 levothyroxine 75 mcg capsule 75 mcg PO DAILY #90 cap 07/10/18 atorvastatin 40 mg tablet 40 mg PO DAILY #90 tab 09/22/18 metoprolol succinate ER 50 mg 50 mg PO DAILY #90 tab 09/27/18 tablet,extended release 24 hr amiodarone 200 mg tablet 200 mg PO DAILY #90 tab-cap 09/30/18 lancets 28 gauge #100 each 11/19/18 Allergies Allergy/AdvReac Type Severity Reaction Status Date / Time lisinopril AdvReac Unknown COUGH Unverified 03/14/19 18:56 SCALLOP AdvReac Intermediate DIZZINESS, Uncoded 03/14/19 18:56 LIGHTHEADED General Stated Complaint: Orthopedic LADAN: 3 Review of Systems Review of Systems All systems reviewed & are unremarkable except as noted in HPI and below Constitutional Denies chills, Denies fever(s) and Denies weakness Cardiovascular Denies chest pain and Denies dyspnea Respiratory Denies cough and Denies dyspnea Gastrointestinal Denies abdominal pain, Denies nausea and Denies vomiting Integumentary/Breasts Denies rash Neurologic Denies weakness [facility] Social History Smoking/Tobacco Use Status: Former Tobacco Use Alcohol Intake: never Drug use: Never Substance use type: does not use Household members: none Number of Children: 2 Do you feel safe at home: Yes Do you feel safe in your relationship?: Yes History History Para 2 Hx # Term Pregnancies Multiple births Hx # Pregnancies Ectopic pregnancies AB induced Hx Number of Living Children AB spontaneous Exam Const General: no acute distress Orientation: alert HENMT Head: normal to inspection Ears: external ears normal General nose exam: external nose normal Mouth: moist mucous membranes Eyes General: appearance normal, both eyes and all related structures Neck Neck: normal visual inspection Resp Effort & Inspection: normal respiratory effort and able to speak in complete sentences Cardio Rate: regular rate Skin General skin exam: no rashes or lesions noted Neuro General: alert and oriented x3 Extrem General: no joint enlargement Psych Mental Status: mental status grossly normal Course Vital Signs Temperature 36.8 C 03/14/19 18:49 Pulse 76 03/14/19 18:49 Respiratory Rate 16 03/14/19 18:49 Blood Pressure 117/35 L 03/14/19 18:49 Pulse Oximetry 97 03/14/19 18:49 Temperature 36.8 C 03/14/19 18:49 Temperature Source Temporal Artery Scan 03/14/19 18:49 Pulse 76 03/14/19 18:49 Respiratory Rate 16 03/14/19 18:49 Respiratory Effort 03/14/19 18:49 Blood Pressure 117/35 L 03/14/19 18:49 Pulse Oximetry 97 03/14/19 18:49 Oxygen Delivery Method Room Air 03/14/19 18:49 Oxygen Flow Rate 0 03/14/19 18:49 Pain Level 8 03/14/19 18:55
--- NOTE | 2019-03-14 19:34 | DI.RAD_ITS ---
SYMPTOM/DIAGNOSIS: PAIN S/P FALL PELVIS AND LEFT HIP: There is a left hip prosthesis in place. No postoperative images are available for comparison. The prosthesis appears intact. There is an apparent fracture at the greater trochanter best seen on the lateral view. No additional fractures are seen. Vascular stent is noted in the right femoral region. IMPRESSION: Probable nondisplaced fracture of the greater trochanter.
--- NOTE | 2019-03-14 20:11 | DI.VRAD_ITS ---
EXAM: XR Left Hip with Pelvis when Performed EXAM DATE/TIME: 03/14/2019 7:16 PM CLINICAL HISTORY: 79 years old, female; Hip pain; Left hip; Prior surgery; Patient HX: Pain S/P fall TECHNIQUE: Imaging protocol: XR Left hip with pelvis when performed. Views: 2 or 3 views. COMPARISON: CR LEFT HIP COMPLETE \T\ AP PELVIS 05/12/2018 1:29 PM FINDINGS: Bones/joints: Diffuse osteopenia. Unipolar left hip arthroplasty without gross hardware complication. No dislocation. The left greater trochanter is somewhat fragmented appearance on today's exam which cannot be definitively confirmed on the preoperative x-ray images on 05/12/2018. The appearance raises suspicion for the possibility of an acute component of fracture in the greater trochanter. CT may be limited by metallic artifact, but would likely provide the most sensitive/specific assessment to evaluate for an element of acute fracture. The right hip is intact. No pelvic fractures are identified. The SI joints and pubic symphysis demonstrate no evidence of diastases. Mild to moderate lower lumbar degenerative changes. Soft tissues: Left SFA stent noted. IMPRESSION: 1. The left greater trochanter has a somewhat fragmented appearance on the frog-leg lateral view which was not clearly present on the radius preoperative radiographs from 2018, and raises concern for acute element of mildly displaced to nondisplaced trochanteric fracture. Consider CT for confirmation if clinically indicated. 2. No other potential fractures. 3. No evidence of associated hardware breakage, displacement, or loosening. 4. Diffuse osteopenia. Dictated and Authenticated by: Brayan Manley MD. Ordering:MARIALUISA Mcfarland MD
== END 2019-03-14 20:49 | disposition home or self-care (01) ==
PROVIDERS: Emergency Provider Emergency Medicine; PCP Internal Medicine
DX: S72.112A Displaced fracture of greater trochanter of left femur, initial encounter for closed fracture (principal); W01.0XXA Fall on same level from slipping, tripping and stumbling without subsequent striking against object, initial encounter; I10 Essential (primary) hypertension; E11.9 Type 2 diabetes mellitus without complications
CPT/HCPCS: 99283; 73502; 99282

== ENCOUNTER 2019-03-31 10:00 | Outpatient (CLI) | payer MEDICARE, SELFPAY ==
--- NOTE | 2019-03-31 10:13 | DI.RAD_ITS ---
SYMPTOM/DIAGNOSIS: HIP FX LEFT HIP: Two views. Comparison is made with 03/14/19. There is again seen a fracture of the greater trochanter of the left hip. The patient has a left hip hemiarthroplasty. No other acute fracture or dislocation is seen. Degenerative changes are seen of the lumbosacral spine and the right hip. Extensive vascular calcifications are present. There is a left femoral artery stent in place.
== END 2019-03-31 10:20 ==
PROVIDERS: PCP Internal Medicine; Referring Provider Internal Medicine; Visit Provider Student in an Organized Health Care Education/Training Program
DX: S72.112A Displaced fracture of greater trochanter of left femur, initial encounter for closed fracture (principal); Z95.820 Peripheral vascular angioplasty status with implants and grafts; W01.0XXA Fall on same level from slipping, tripping and stumbling without subsequent striking against object, initial encounter
CPT/HCPCS: 99213; 73502

== ENCOUNTER 2019-04-28 10:43 | Outpatient (CLI) | payer MEDICARE, SELFPAY ==
--- NOTE | 2019-04-28 10:06 | DI.RAD_ITS ---
SYMPTOM/DIAGNOSIS: F/U HIP FRACTURE LEFT HIP: 04/28 Two views were obtained. The previously described fracture of the greater trochanter of the left femur is again noted and there appears to be some callus formation at the fracture site. The femoral head prosthesis remains well seated in the femur and acetabulum. No other significant change seen.
== END 2019-04-28 11:03 ==
PROVIDERS: PCP Internal Medicine; Referring Provider Internal Medicine; Visit Provider Student in an Organized Health Care Education/Training Program
DX: S72.112D Displaced fracture of greater trochanter of left femur, subsequent encounter for closed fracture with routine healing; X58.XXXD Exposure to other specified factors, subsequent encounter
CPT/HCPCS: 99213; 73502

== ENCOUNTER → 2019-10-09 11:11 | Outpatient (BNVA) | payer MEDICARE, SELFPAY | PROVIDERS: PCP Internal Medicine; Referring Provider Internal Medicine; Visit Provider Student in an Organized Health Care Education/Training Program | DX: Z47.89 Encounter for other orthopedic aftercare (principal); Z89.512 Acquired absence of left leg below knee; T87.9 Unspecified complications of amputation stump | CPT/HCPCS: 99213 ==

== ENCOUNTER 2019-12-11 02:44 | Outpatient (CLI) | payer MEDICARE, SELFPAY ==
[2019-12-11 12:28] LABS: Abs Immature Grans 0.01 k/cumm (0.0-0.09); Absolute Basophil Count 0.03 k/cumm (0.0-0.2); Absolute Eosinophil Count 0.27 k/cumm (0.0-0.7); Absolute Lymphocyte Count 2.41 k/cumm (1.2-3.4); Absolute Monocyte Count 0.61 k/cumm (0.11-0.7); Absolute Neutrophil Count 3.04 k/cumm (1.2-6.7); Basophils % 0.5; Eosinophils % 4.2; HCT 42.6 % (36.0-46.0); HGB 14.2 g/dL (12.0-15.5); Immature Grans % 0.2 %; Lymphocytes % 37.8; Mean Corp. HGB Concentration 33.3 g/dL (32.0-36.0); Mean Corpuscular Hemoglobin 34.5 pg (27.0-33.0); Mean Corpuscular Volume 103.6 fL (80-95); Mean Platelet Volume 10.3 fL (8.0-11.0); Monocytes % 9.6; Neutrophils % 47.7; Platelet Count 203 x1000/uL (130-400); RBC 4.11 m/cumm (4.00-5.20); RBC Distribution Width 13.8 % (11.7-14.6); White Blood Cell Count 6.37 k/cumm (4.4-10.8)
[2019-12-11 12:49] LABS: ALT 77 U/L (14-59); AST 50 U/L (15-37); Albumin 3.9 g/dL (3.4-5.0); Alkaline Phosphatase 89 U/L (46-116); Anion Gap 7.6 mmol/L (3-11); BUN 24 mg/dL (7-18); Bilirubin, Total 0.4 mg/dL (0.2-1.0); CO2 30.4 mmol/L (21.0-32.0); CREATININE 1.29 mg/dL (0.55-1.02); Calcium 9.2 mg/dL (8.5-10.1); Calculated LDL 86 mg/dL (<100); Chloride 105 mmol/L (98-107); Cholesterol 159 mg/dL (<200); Estimated GFR 39.66 (mL/min/1.73m2); Glucose 122 mg/dL (74-106); HDL Cholesterol 52 mg/dL (40-60); Potassium 4.6 mmol/L (3.5-5.1); Sodium 143 mmol/L (136-145); Total Protein 7.1 g/dL (6.4-8.2); Triglyceride 106 mg/dL (<150)
[2019-12-11 14:08] LABS: Hemoglobin A1C 6.4 % (3.8-5.6)
== END 2019-12-11 03:04 ==
PROVIDERS: Internal Medicine; PCP Nurse Practitioner; Visit Provider Nurse Practitioner
DX: I10 Essential (primary) hypertension (principal); E11.9 Type 2 diabetes mellitus without complications; R50.9 Fever, unspecified
CPT/HCPCS: 36415; 80053; 80061; 83036; 85025

== ENCOUNTER 2020-03-23 03:37 | Outpatient (CLI) | payer MEDICARE, SELFPAY ==
[2020-03-23 12:57] LABS: TSH 2.38 uIU/mL (0.36-3.74)
== END 2020-03-23 03:57 ==
PROVIDERS: PCP Nurse Practitioner; Visit Provider Nurse Practitioner
DX: E11.9 Type 2 diabetes mellitus without complications (principal)
CPT/HCPCS: 36415; 84443

== ENCOUNTER 2020-04-20 01:00 | Outpatient (CLI) | payer MEDICARE, SELFPAY ==
--- NOTE | 2020-04-20 06:15 | DI.MAMMO_ITS ---
EXAM: MG MAMMO SCREENING CLINICAL HISTORY: screening.[id number] TECHNIQUE: Mammograms were interpreted according to the usual protocol including computer analysis w [employer] CAD system, tomosynthesis and C-view imaging. COMPARISON: FINDINGS: The breasts are of moderate density with fairly symmetrical distribution of fibroglandular tissue. N o dominant mass or clumped microcalcification is identified in either breast. The current examinatio n is compared with previous examinations including August 2015 and there has been no gross interval change in appearance comparison with previous studies. IMPRESSION: No specific evidence of malignancy at this time. Routine screening examinations are suggested at yea rly intervals in this age group according to the ACS ACR guidelines. BI-RADS Category 1 - Negative Breast Density - Category B - Scattered areas of fibroglandular density
== END 2020-04-20 01:20 ==
PROVIDERS: PCP Nurse Practitioner; Visit Provider Nurse Practitioner
DX: Z12.31 Encounter for screening mammogram for malignant neoplasm of breast (principal); R92.2 Inconclusive mammogram
CPT/HCPCS: 77063; 77067

== ENCOUNTER 2021-02-08 09:34 | Emergency (ER) | payer MEDICARE, OTHER, SELFPAY ==
[2021-02-08] VITALS (16 sets, daily range): BP systolic 126–153; BP diastolic 49–62; PULSE 69–97; RESP 10–23; TEMP 36.6; O2SAT 98–100
--- NOTE | 2021-02-08 09:15 | RT.EKG_ITS ---
APPROVED REPORT Exam: Resting ECG Reason for Exam: DIZZINESS Patient Location: E HR:73 bpm ECG Measurements Heart Rate 73 AXIS MA 245 P [id number] QRSd 129 QRS -39 QT 478 T 111 QTc 527 Conclusion Atrial-paced rhythm Left bundle branch block...QRSd>120, broad/notched R
--- NOTE | 2021-02-08 09:45 | DI.CT_ITS ---
Exam(s) CT HEAD WO EXAM: CT HEAD WO CLINICAL HISTORY: vertigo. TECHNIQUE: Imaging Protocol: Axial computed tomography images with coronal and sagittal reformatted images were created and reviewed COMPARISON: CT CT HEAD FOR STROKE PROTOCOL from 07/04/2018 FINDINGS: Ventricles and Extra axial spaces: Normal in size and morphology for the patient's age. Hemorrhage: None. Cerebral parenchyma: Normal. Midline shift: None. Brainstem/Cerebellum: Normal. Calvarium: Hyperostosis frontalis interna. Visualized Paranasal sinuses/Mastoids: Clear. Soft Tissues: Unremarkable. IMPRESSION: No acute intracranial process. RADIATION DOSE DELIVERED: 778.89mGy.cm Total DLP DATA REPOSITORY: All CT scans at this facility are submitted to the National Radiology Data Registry (NRDR) Dose Index Registry (DIR) with the [employer] (ACR). RADIATION OPTIMIZATION: All CT scans at this facility use at least one of these dose optimization te chniques: automated exposure control; mA and/or kV adjustment per patient size (includes targeted exa ms where dose is matched to clinical indication); or iterative reconstruction.
[2021-02-08 09:51] LABS: Abs Immature Grans 0.01 10^3/uL (0.0-0.06); Absolute Basophil Count 0.06 10^3/uL (0.0-0.2); Absolute Eosinophil Count 0.22 10^3/uL (0.0-0.7); Absolute Lymphocyte Count 2.61 10^3/uL (1.2-3.4); Absolute Monocyte Count 0.58 10^3/uL (0.1-0.8); Absolute Neutrophil Count 3.33 10^3/uL (1.2-6.7); Basophils % 0.9; Eosinophils % 3.2; HCT 41.3 % (36.0-46.0); HGB 13.9 g/dL (11.2-15.7); Immature Grans % 0.1; Lymphocytes % 38.3; MCH 34.2 pg (27.0-33.0); MCHC 33.7 % (32.0-36.0); MCV 101.7 fL (80-95); MPV 9.9 fL (8.0-11.0); Monocytes % 8.5; Nucleated RBC 0 %; Platelet Count 168 10^3/uL (130-400); RBC 4.06 10^6/uL (3.93-5.22); RDW 13.2 % (11.7-14.6); RDW-SD 49.5 fL; WBC 6.81 10^3/uL (4.4-10.8)
--- NOTE | 2021-02-08 09:52 | ED.GENADUL_ITS ---
Discharge Plan Disposition Patient Disposition: HOME Condition: Stable Discharge Details Clinical Impression: Vertigo Primary Care Provider: Génesis Lara ED Provider: Bartolo Schofield Home Meds and New Rx's Prescriptions: New meclizine 25 mg tablet 25 mg PO TID PRN (Reason: dizziness) Qty: 30 RF: 0 Continued omega-3 fatty acids [Fish Oil Concentrate] 1,000 mg capsule 1,000 mg PO DAILY RF: 0 B-complex with vitamin C tablet 1 tab PO DAILY RF: 0 aspirin [Aspirin Low-Strength] 81 MG tablet,chewable 81 mg PO DAILY RF: 0 ipratropium bromide [Atrovent] 30 ML spray,non-aerosol 2 spry NS BID PRN Qty: 1 RF: 11 acetaminophen [Tylenol Extra Strength] 500 MG tablet 1,000 mg PO PRN RF: 0 calcium carbonate 500 MG tablet 1,500 mg PO DAILY RF: 0 Women's 50 Plus Daily Formula 1 EACH tablet 1 ea PO DAILY RF: 0 cinnamon bark-chromium picolin 1 EACH capsule 500 mg PO DAILY RF: 0 nitroglycerin 0.4 MG tablet, sublingual 0.4 mg Sublingual Q 5 MIN PRN Qty: 25 RF: 11 ascorbic acid (vitamin C) 500 mg tablet 1,000 mg PO DAILY RF: 0 metoprolol succinate 50 mg tablet extended release 24 hr 50 mg PO DAILY Qty: 90 RF: 3 (DME) lancets 28 gauge misc 1 ea Miscellaneous DAILY Qty: 100 RF: 4 losartan 50 mg tablet 50 mg PO DAILY Qty: 90 RF: 4 atorvastatin 40 mg tablet 40 mg PO DAILY Qty: 90 RF: 3 clopidogrel 75 mg tablet 75 mg PO DAILY Qty: 90 RF: 4 amiodarone 200 mg tablet 200 mg PO DAILY Qty: 90 RF: 3 mexiletine 200 mg capsule 200 mg PO TID Qty: 270 RF: 4 (DME) FreeStyle Lite Strips Strip 1 strip Miscellaneous DAILY Qty: 100 RF: 11 levothyroxine 75 mcg capsule 75 mcg PO DAILY Qty: 90 RF: 3 meclizine 25 MG tablet,chewable 25 mg PO BID PRNRF: 0 Discharge Instructions Instructions: Vertigo (ED) Additional Instructions: your blood work and cat scan did not show any concerning findings follow up with your primary care provider within a week if you feel more ill, have worsening symptoms, chest pain or difficulty breathing return to the emergency department Medical Decision Making 80 yo female with hx of DM with right bka, pvd, htn, hld, who comes in with ems with feeling dizzy especially with movement. She states last night she noticed with head turning she had some mild dizziness but went to bed otherwise feeling well. This morning when she woke up she sat up and felt dizzy, lasting briefly and then while doing dishes again started to feel dizzy so called ems. Denies any vision changes, headache, fevers, chest pain or dyspnea. She has no drift on exam, no focal motor or sensation eficits, normal sensation in right leg and in left leg above the prosthesis. EOMI with mild nystagmus when looking to the left this is horizontal, clear speech, NIH of 0 with reassuring HINTS exam. Symptoms seem consistent with likely peripheral vertigo, unlikely central vertigo. Will treat with meclizine and evaluate for possible other causes of her dizziness including anemia and though she has no chest pain obtain troponin to evaluate for ischemia. Patient remains stable is sitting up without symptoms and has no complaints, feels improved stating she can move her head better after meclizine. Suspect peripheral vertigo, will try to ambulate her to assess steadiness patient able to ambulate unassisted using cane at her baseline without any symptoms. Feels well and is comfortable with discharge and going home. I suspect her symptoms are likely from bppv from the brevity it lasted and was only with head movement. Will have her f/u with her pcp within a week and return precautions given Differential Diagnosis Differential Diagnosis: bppv, labrynthitis, anemia, Medical Records Medical records reviewed: Yes I reviewed the patient's medical records. Imaging Data Radiologic Study: Attestation: I personally reviewed and interpreted this imaging study as follows: Imaging: CT Scan Radiologist's impression: no acute findings Lab Data Lab results reviewed: Yes I reviewed the patient's lab results. ECG Data Attestation: I personally reviewed and interpreted this ECG (s) as follows: Prior ECG tracings: not available for review Interpretation: sinus rhythm, left bundle branch block, rate of 73, no acute st t wave ischemic findings HPI General Mode of arrival: EMS . Date/Time Provider Initiated Documentation: 02/08/21 09:41 . Limitations to Documentation: no limitations . History of Present Illness 80 year old F presents to the emergency department with the chief complaint of dizzy, described as moderate, Patient started experiencing this day(s) (1) and it has been intermittent. Rest improves symptom(s), Movement worsens symptoms . Patient notes no other symptoms.. Patient did receive the following treatments prior to arrival, none Related Data Home Medications Medication Instructions Recorded Confirmed aspirin [Aspirin Low-Strength] 81 mg PO DAILY tab-cap 01/01/13 02/08/21 ipratropium bromide [Atrovent] 2 spry NS BID PRN #1 spray 01/01/13 02/08/21 acetaminophen [Tylenol Extra 1,000 mg PO PRN tab-cap 02/20/14 02/08/21 Strength] calcium carbonate 1,500 mg PO DAILY 05/07/15 02/08/21 Women's 50 Plus Daily Formula 1 ea PO DAILY 07/02/15 02/08/21 cinnamon bark-chromium picolin 500 mg PO DAILY 01/28/16 02/08/21 nitroglycerin 0.4 mg SUBLINGUAL Q 5 MIN PRN #25 05/28/17 02/08/21 tab-cap B-complex with vitamin C 1 tab PO DAILY 07/18/18 02/08/21 ascorbic acid (vitamin C) 500 mg 1,000 mg PO DAILY tab 07/18/18 02/08/21 tablet omega-3 fatty acids 1,000 mg 1,000 mg PO DAILY 07/18/18 02/08/21 capsule meclizine 25 mg PO BID PRN 02/22/19 02/08/21 metoprolol succinate 50 mg 50 mg PO DAILY #90 tab 09/22/19 02/08/21 tablet,extended release 24 hr lancets 28 gauge #100 each 12/15/19 02/08/21 losartan 50 mg tablet 50 mg PO DAILY #90 tab-cap 05/13/20 02/08/21 amiodarone 200 mg tablet 200 mg PO DAILY #90 tab-cap 08/27/20 02/08/21 atorvastatin 40 mg tablet 40 mg PO DAILY #90 tab 08/27/20 02/08/21 clopidogrel 75 mg tablet 75 mg PO DAILY #90 tab-cap 08/27/20 02/08/21 mexiletine 200 mg capsule 200 mg PO TID #270 tab-cap 10/11/20 02/08/21 blood sugar diagnostic #100 strip 01/12/21 02/08/21 levothyroxine 75 mcg capsule 75 mcg PO DAILY #90 cap 01/18/21 02/08/21 meclizine 25 mg PO TID PRN #30 tab 02/08/21 Previous Rx's Medication Instructions Recorded metoprolol succinate 50 mg 50 mg PO DAILY #90 tab 09/22/19 tablet,extended release 24 hr lancets 28 gauge #100 each 12/15/19 losartan 50 mg tablet 50 mg PO DAILY #90 tab-cap 05/13/20 amiodarone 200 mg tablet 200 mg PO DAILY #90 tab-cap 08/27/20 atorvastatin 40 mg tablet 40 mg PO DAILY #90 tab 08/27/20 clopidogrel 75 mg tablet 75 mg PO DAILY #90 tab-cap 08/27/20 mexiletine 200 mg capsule 200 mg PO TID #270 tab-cap 10/11/20 blood sugar diagnostic #100 strip 01/12/21 levothyroxine 75 mcg capsule 75 mcg PO DAILY #90 cap 01/18/21 meclizine 25 mg PO TID PRN #30 tab 02/08/21 Allergies Allergy/AdvReac Type Severity Reaction Status Date / Time lisinopril AdvReac Unknown COUGH Unverified 02/08/21 09:41 SCALLOP AdvReac Intermediate DIZZINESS, Uncoded 02/08/21 09:41 LIGHTHEADED General Stated Complaint: Dizzy/Sync LADAN: 2 Review of Systems All systems reviewed & are unremarkable except as noted in HPI and below Constitutional Constitutional: Denies chills, Denies fever(s) and Denies weakness Cardiovascular Cardiovascular: Denies chest pain and Denies dyspnea Respiratory Respiratory: Denies cough and Denies dyspnea Gastrointestinal Gastrointestinal: Denies abdominal pain, Denies nausea and Denies vomiting Musculoskeletal Musculoskeletal: Denies joint swelling Neurologic Neurologic: Denies weakness [facility] Medical History (Updated 02/08/21 @ 11:17 by Bartolo Schofield MD) Chronic rhinitis (01/29/14) Claudication Coronary atherosclerosis Essential hypertension Femur fracture, left (05/12/18) Fracture of femoral neck, left, closed Fracture of greater trochanter of left femur (~03/12/19) Fracture of neck of left femur (05/12/18) Hip fracture, left She is recovering/ed fine from this and seems to be ambulating with relative ease and no discomfort. 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 04/29 [facility]; left iliofemoral endarterectomy with patch and arterioplasty, left SFA stent from D4 toe ischemia. Ligation of fallopian tube Open Carpal Tunnel release (~07/2008) Family History (Updated 03/11/20 @ 14:00 by Mathieu Vela) Mother , 80s Stroke Father Essential hypertension Heart disease Sister Diabetes Maternal Grandfather No problems noted. Paternal Grandfather No problems noted. Maternal Grandmother No problems noted. Paternal Grandmother No problems noted. FAMILY HISTORY Stroke GRANDPARENT Sister Diabetes Essential hypertension Cancer Sister Diabetes Essential hypertension Stroke Son No problems noted. Daughter No problems noted. Social History (Updated 03/11/20 @ 13:59 by Mathieu Vela) Smoking/Tobacco Use Status: Former Tobacco Use Tobacco: How many years used: 25 Smoking risk assessment performed?: Yes Alcohol Intake: never Drug use: Never Substance use type: does not use Caregiver/Support person: Yes Household members: none Number of Children: 2 Communication Needs: None Pets and animals: No Sexually active: No Do you think of yourself as: straight/heterosexual What is your relationship status?: How often do you talk on the phone with friends or family?: three or more times per week How often do you get together with friends or relatives?: three or more times per week How often do you attend religion or baptism services?: 4 or more times per year Do you belong to any clubs or organized social groups?: decline to answer Panel score (0-1 are the most socially isolated patients): 2 What type of physical activity do you participate in: other Details: leg exercises Duration: < 15 minutes/day Frequency: 1-2 times per week Miguelina/Rastafarian: Pentecostal Special miguelina needs: No Seatbelt use: always Helmet use: No Drive intox or ride w/intox service car driver: No Do you feel safe at home: Yes Do you feel safe in your relationship?: Yes History History Para 2 Hx # Term Pregnancies Multiple births Hx # Pregnancies Ectopic pregnancies AB induced Hx Number of Living Children AB spontaneous Exam Const General: no acute distress Orientation: alert HENMT Head: normal to inspection Ears: external ears normal General nose exam: external nose normal Mouth: moist mucous membranes Eyes General: appearance normal, both eyes and all related structures Neck Neck: normal visual inspection Resp Effort & Inspection: normal respiratory effort and able to speak in complete sentences Cardio Rate: regular rate Skin General skin exam: no rashes or lesions noted Neuro General: patient alert and patient oriented x3 Extrem General: normal to inspection Psych Mental Status: mental status grossly normal Course Vital Signs Vital signs: Vital Signs Temperature 36.6 C 02/08/21 09:36 Pulse 82 02/08/21 09:36 Respiratory Rate 79 H 02/08/21 09:36 Blood Pressure 153/62 H 02/08/21 09:36 Pulse Oximetry 100 02/08/21 09:36 Temperature 36.6 C 02/08/21 09:36 Temperature Source Temporal Artery Scan 02/08/21 09:36 Pulse 82 02/08/21 09:36 Respiratory Rate 79 H 02/08/21 09:36 Respiratory Effort Non-Labored 02/08/21 09:40 Blood Pressure 153/62 H 02/08/21 09:36 Blood Pressure Position Supine 02/08/21 09:36 Pulse Oximetry 100 02/08/21 09:36 Oxygen Delivery Method Room Air 02/08/21 09:36 Oxygen Flow Rate 0 02/08/21 09:36 Pain Level 0 02/08/21 09:36
[2021-02-08] MEDS: Normal Saline Flush 10 ML SYR IVP (09:55)
[2021-02-08] MEDS: Meclizine 25 MG TAB PO (10:00)
[2021-02-08 10:05] LABS: INR 1.1 (0.9-1.1); PTT Activated 22.1 sec (21.0-27.5); Prothrombin Time 10.7 sec (9.3-11.0)
[2021-02-08 10:13] LABS: Magnesium 2.2 mg/dL (1.8-2.4); TSH (W/Ref FT4) 6.78 uIU/mL (0.36-3.74)
[2021-02-08 10:15] LABS: Troponin I < 0.05 ng/mL (<0.06)
[2021-02-08 10:31] LABS: FREE T4 1.04 ng/dL (0.76-1.46)
[2021-02-08 10:34] LABS: Bilirubin Negative (Negative); Blood Negative (Negative); Clarity Clear (Clear); Glucose Negative (Negative); Ketones Negative (Negative); Leukocyte Esterase Negative (Negative); Nitrite Negative (Negative); Specific Gravity 1.015 (1.005-1.025); Urobilinogen 0.2 EU/dL (Up TO 0.2)
[2021-02-08 10:41] LABS: ALT 63 U/L (14-59); AST 45 U/L (15-37); Albumin 3.9 g/dL (3.4-5.0); Alkaline Phosphatase 76 U/L (46-116); Anion Gap 9.6 mmol/L (3-11); BUN 22 mg/dL (7-18); Bilirubin, Total 0.5 mg/dL (0.2-1.0); CO2 28.4 mmol/L (21.0-32.0); CREATININE 1.2 mg/dL (0.55-1.02); Calcium 9.1 mg/dL (8.5-10.1); Chloride 106 mmol/L (98-107); Estimated GFR 43.01 (mL/min/1.73m2); Glucose 118 mg/dL (74-106); Potassium 3.9 mmol/L (3.5-5.1); Sodium 144 mmol/L (136-145); Total Protein 7.7 g/dL (6.4-8.2)
--- NOTE | 2021-02-08 11:12 | NUR.NOTE ---
Nursing Note: Referral faxed to PCP for follow up within one week for vertigo. Hermelinda Maher
== END 2021-02-08 11:30 | disposition home or self-care (01) ==
PROVIDERS: Emergency Provider Emergency Medicine; PCP Nurse Practitioner
DX: R42 Dizziness and giddiness (principal)
CPT/HCPCS: 36415; 80053; 93005; 99284; 70450; 81003; 83735; 84439; 84443; 84484; 85025; 85610; 85730; 93010; 99283

== ENCOUNTER 2021-03-10 03:54 | Outpatient (CLI) | payer MEDICARE, OTHER, SELFPAY ==
[2021-03-10 07:50] LABS: Hemoglobin A1C 5.8 % (<5.7)
[2021-03-10 08:00] LABS: CREATININE 1.3 mg/dL (0.55-1.02); Calculated LDL 83 mg/dL (<100); Cholesterol 149 mg/dL (<200); Estimated GFR 39.21 (mL/min/1.73m2); HDL Cholesterol 50 mg/dL (40-60); Potassium 4.4 mmol/L (3.5-5.1); TSH 3.08 uIU/mL (0.36-3.74); Triglyceride 82 mg/dL (<150)
== END 2021-03-10 03:55 | disposition home or self-care (01) ==
LOC: LBO 03:54
PROVIDERS: PCP Nurse Practitioner; Visit Provider Nurse Practitioner
DX: I10 Essential (primary) hypertension (principal); I25.10 Atherosclerotic heart disease of native coronary artery without angina pectoris; E11.9 Type 2 diabetes mellitus without complications
CPT/HCPCS: 36415; 80061; 82565; 83036; 84132; 84443

== ENCOUNTER 2021-04-21 01:56 | Outpatient (CLI) | payer MEDICARE, SELFPAY ==
--- NOTE | 2021-04-21 06:45 | DI.MAMMO_ITS ---
Exam(s) MAMMO SCREENING EXAM: MAMMO SCREENING CLINICAL HISTORY: screening,Z12.39. TECHNIQUE: Bilateral full field digital CC and MLO mammographic images were obtained with 3D tomosyn thesis and utilizing computer aided detection (CAD). COMPARISON: Prior mammograms dating back to 2011, the most recent being April 2020. FINDINGS: No new significant radiograph findings in the right breast. In the left breast there is a subtle group of microcalcifications seen on the CC view located approxi mately 8 cm in from the nipple are spot Mag view. Other microcalcifications and macrocalcifications in left breast are benign. No new spiculated masses in either breast. There is no significant architectural distortion nor skin thickening-retraction. IMPRESSION: 1. No radiographic evidence of malignancy in the right breast. 2. Left breast microcalcification group which require spot Mag 2D CC VIEW. BI-RADS Category 0 - Assessment Incomplete: Need additional imaging evaluation Breast Density - Category B - Scattered areas of fibroglandular density Breast density Category C or D implies that the patient has dense breast tissue. Dense breast tissue can make it harder to find cancer on a mammogram. Dense breast tissue is also associated with an incr eased risk of breast cancer. This information about the result of the mammogram report was provided to the patient to raise their awareness. Use this report when you speak with the patient about their risks for breast cancer, which includes their family history. At that time, you may recommend additional screening tests (Ultrasoun d or MRI) as these tests may add significant information. A negative radiographic report should not delay biopsy if a dominant or clinically suspicious mass is present. Up to ten percent of cancers are not identified on mammography. A negative report may reinforce clinical impression. Adenosis and dense breasts may obscure an underlying neoplasm. False positive reports average 6 to 10%. Patient will receive a letter notifying them of these results.
== END 2021-04-21 02:16 ==
PROVIDERS: PCP Nurse Practitioner; Visit Provider Nurse Practitioner
DX: Z12.31 Encounter for screening mammogram for malignant neoplasm of breast (principal); R92.8 Other abnormal and inconclusive findings on diagnostic imaging of breast
CPT/HCPCS: 77063; 77067

== ENCOUNTER 2021-05-16 01:45 | Outpatient (CLI) | payer MEDICARE, OTHER, SELFPAY ==
--- NOTE | 2021-05-16 | DI.MAMMO_ITS ---
Exam(s) MG MAMMO SCREEN CALL BACK UNI EXAM: MAMMO SCREEN CALL BACK UNI CLINICAL HISTORY: F/U MAMMO,MICROCALCIFICATIONS. TECHNIQUE: Craniocaudal magnification mammography views of the left breast with Computer Aided Diagn osis. COMPARISON: Comparison with prior examinations. FINDINGS: Mammography/Tomosynthesis: Masses/Architectural Distortion: None seen. Microcalcifictions: No suspicious pleomorphic-type are seen. There are few punctate calcifications se en in the posterior outer left breast. These are unchanged compared to prior examinations. Skin Thickening/Nipple Retraction: None. IMPRESSION: 1. No evidence of malignancy is noted. 2. A six-month follow-up left mammogram is requested for re-evaluation. 3. The findings were discussed with the patient on the date of the examination. BI-RADS Category 3 - 6 month - Probably Benign Finding: Recommend follow-up imaging in 6 months Breast Density - Category B - Scattered areas of fibroglandular density Breast density Category C or D implies that the patient has dense breast tissue. Dense breast tissue can make it harder to find cancer on a mammogram. Dense breast tissue is also associated with an incr eased risk of breast cancer. This information about the result of the mammogram report was provided to the patient to raise their awareness. Use this report when you speak with the patient about their risks for breast cancer, which includes their family history. At that time, you may recommend additional screening tests (Ultrasoun d or MRI) as these tests may add significant information. A negative radiographic report should not delay biopsy if a dominant or clinically suspicious mass is present. Up to ten percent of cancers are not identified on mammography. A negative report may reinforce clinical impression. Adenosis and dense breasts may obscure an underlying neoplasm. False positive reports average 6 to 10%. Patient will receive a letter notifying them of these results.
== END 2021-05-16 02:05 ==
PROVIDERS: PCP Nurse Practitioner; Visit Provider Nurse Practitioner
DX: R92.8 Other abnormal and inconclusive findings on diagnostic imaging of breast (principal); R92.0 Mammographic microcalcification found on diagnostic imaging of breast
CPT/HCPCS: 77063; 77067

== ENCOUNTER 2021-08-07 07:47 | Emergency (ER) | payer MEDICARE, OTHER, SELFPAY ==
--- NOTE | 2021-08-07 07:15 | RT.EKG_ITS ---
APPROVED REPORT Exam: Resting ECG Reason for Exam: chest pain Patient Location: E HR:71 bpm ECG Measurements Heart Rate 71 AXIS AK 227 P [id number] QRSd 129 QRS -35 QT 451 T 108 QTc 492 Conclusion Atrial-paced rhythm Left bundle branch block...QRSd>120, broad/notched R. Atrial paced. LBBB. No STEMI. No significant change from previous EKG. I have reviewed and interpreted ECG and agree with software generated interpretation.
[2021-08-07 07:30] VITALS: BP 152/57; PULSE 79; RESP 18; TEMP 36.9; O2SAT 100
--- NOTE | 2021-08-07 07:56 | ED.GENADUL_ITS ---
Discharge Plan Disposition Patient Disposition: HOME Condition: Stable Discharge Details Clinical Impression: Chest pain, Upper abdominal pain Primary Care Provider: Génesis Lara ED Provider: Clarice Munson Home Meds and New Rx's Prescriptions: Continued omega-3 fatty acids [Fish Oil Concentrate] 1,000 mg capsule 1,000 mg PO DAILY RF: 0 B-complex with vitamin C tablet 1 tab PO DAILY RF: 0 cholecalciferol (vitamin D3) 25 mcg (1,000 unit) capsule 25 mcg PO DAILY RF: 0 (DME) lancets 28 gauge misc 1 ea Miscellaneous DAILY Qty: 100 RF: 4 (DME) FreeStyle Lite Strips Strip 1 strip Miscellaneous DAILY Qty: 100 RF: 11 losartan 50 mg tablet 50 mg PO DAILY Qty: 90 RF: 4 aspirin [Aspirin Low-Strength] 81 MG tablet,chewable 81 mg PO DAILY RF: 0 ipratropium bromide [Atrovent] 30 ML spray,non-aerosol 2 spry NS BID PRN Qty: 1 RF: 11 acetaminophen [Tylenol Extra Strength] 500 MG tablet 1,000 mg PO PRN RF: 0 calcium carbonate 500 MG tablet 1,500 mg PO DAILY RF: 0 Women's 50 Plus Daily Formula 1 EACH tablet 1 ea PO DAILY RF: 0 cinnamon bark-chromium picolin 1 EACH capsule 500 mg PO DAILY RF: 0 nitroglycerin 0.4 MG tablet, sublingual 0.4 mg Sublingual Q 5 MIN PRN Qty: 25 RF: 11 ascorbic acid (vitamin C) 500 mg tablet 1,000 mg PO DAILY RF: 0 atorvastatin 40 mg tablet 40 mg PO DAILY Qty: 90 RF: 3 clopidogrel 75 mg tablet 75 mg PO DAILY Qty: 90 RF: 4 amiodarone 200 mg tablet 200 mg PO DAILY Qty: 90 RF: 3 mexiletine 200 mg capsule 200 mg PO TID Qty: 270 RF: 4 levothyroxine 75 mcg capsule 75 mcg PO DAILY Qty: 90 RF: 3 metoprolol succinate 50 mg tablet extended release 24 hr 50 mg PO DAILY Qty: 90 RF: 3 Discharge Instructions Instructions: Chest Pain (ED), Abdominal Pain (ED) Additional Instructions: Your lab work, EKGs and imaging today are reassuring and do not note evidence of acute abdominal significant findings. Drink plenty of fluids and get plenty of rest. You can try taking an [id number] proton pump inhibitor such as Prilosec or Prevacid once daily for the next 2 weeks. You will receive a call from the radiology department regarding scheduling an outpatient stress test. Call your primary care doctor's office tomorrow to schedule a follow-up appointment for reevaluation within the next week. Return immediately to the emergency department if you develop any worsening or new concerning symptoms. Referrals: Waleska Sebastian MD [ [facility] STAFF PHYSICIAN] - Discharge Data Discharge Date/Time-TO BE ENTERED AT DEPARTURE: 08/07/21 11:42 Discharge Physician: Clarice Munson Medical Decision Making 0800 -- 81-year-old female with a history of coronary artery disease, MT, hypertension, diabetes, peripheral vascular disease, pacemaker, defibrillator and 6 coronary stents presents from home for intermittent episodes of inferior chest pain since last night. EKG on arrival notes a rate of 71, atrial paced, left bundle branch block, no STEMI and no significant change from previous EKG. Patient appears comfortable and nontoxic. Her vitals are within normal limits. Initial blood pressure 152/57, now 124/48. She has tenderness palpation to her bilateral upper abdominal quadrants. Her abdomen is otherwise soft without rigidity or guarding. No anterior chest tenderness. Differential diagnosis includes ACS, gastritis, PUD, GERD. Will place an IV, bolus IV fluids, screening labs, CT chest abdomen and pelvis and give Pepcid and GI cocktail reassess. 0845 -- Labs and imaging reviewed. Normal white blood cell count. Troponin negative. Lipase normal. TSH normal. CT chest negative. CT abdomen and pelvis notes sigmoid colitis versus incomplete distention. She states she has intermittent diarrhea at baseline and states this is no worse than usual and denies any lower abdominal pain. Patient reassessed and she is currently pain-free. Patient states she would like to go home. Her HEART score is 4 based on her age and more than 3 cardiac risk factors but her history is not suspicious sounding as her pain is atypical of her previous MT, is located in the lower ribs and upper abdomen bilaterally a nd she has negative troponin and reassuring ekg. The risks of and disability due to potential for missed diagnoses or worsening condition explained and pt understands and demonstrates capacity to make decisions. 1130 -- She was agreeable to stay for repeat troponin which was negative and a repeat EKG which was negative for acute findings. Patient reassessed and she denied any return of pain in his maintaining that she would like to go home. Disposition decision made weighing the risks and benefits of hospitalization versus outpatient treatment, the risk for further decompensation, and the patient's wishes. An outpatient stress test ordered. Advised to follow up with the primary care doctor for re-evaluation. Usual and customary return precautions given prior to discharge. In-house radiologist read the CT after discharge and notes possible gastritis which likely clinically correlates with pt's current symptom presentation. Medical Records Medical records reviewed: Yes I reviewed the patient's medical records. Imaging Data Radiologic Study: Radiologist's impression: CTA Chest With Contrast Exam date and time: 08/07/2021 8:18 AM Age: 81 years old Clinical indication: Other: Chest pain/epigastric pain TECHNIQUE: Imaging protocol: Computed tomographic angiography of the chest with contrast. 3D rendering (Not supervised by radiologist): MIP and/or 3D reconstructed images were created by the technologist. Radiation optimization: All CT scans at this facility use at least one of these dose optimization techniques: automated exposure control; mA and/or kV adjustment per patient size (includes targeted exams where dose is matched to clinical indication); or iterative reconstruction. Contrast material: OMNIPAQUE 350; Contrast volume: 150 ml; Contrast route: INTRAVENOUS (IV); COMPARISON: CR XR CHEST 2V PA LATERAL 07/04/2018 11:20 AM FINDINGS: Tubes, catheters and devices: AICD left chest wall Pulmonary arteries: Normal. No pulmonary emboli. Aorta: Unremarkable. No aortic aneurysm. No aortic dissection. Lungs: Unremarkable. No consolidation. No masses. Pleural spaces: Unremarkable. No pneumothorax. No pleural effusion. Heart: Mitral annular calcifications. Coronary artery atherosclerotic disease Lymph nodes: Unremarkable. No enlarged lymph nodes. Diaphragm: Small hiatal hernia Bones/joints: Unremarkable. No acute fracture. Soft tissues: Unremarkable. IMPRESSION: 1. No evidence of pulmonary emboli 2. No evidence of pneumonia CT Angiography Abdomen With Contrast Exam date and time: 08/07/2021 8:18 AM Age: 81 years old Clinical indication: Other: Chest pain/epigastric pain TECHNIQUE: Imaging protocol: Computed tomographic angiography images of the abdomen with intravenous contrast material. 3D rendering (Not supervised by radiologist): MIP and/or 3D reconstructed images were created by the technologist. Radiation optimization: All CT scans at this facility use at least one of these dose optimization techniques: automated exposure control; mA and/or kV adjustment per patient size (includes targeted exams where dose is matched to clinical indication); or iterative reconstruction. Contrast material: OMNIPAQUE 350; Contrast volume: 150 ml; Contrast route: INTRAVENOUS (IV); COMPARISON: CR XR CHEST 2V PA LATERAL 07/04/2018 11:20 AM FINDINGS: Aorta: Small focal chronic contained dissection distal abdominal aorta. Severe diffuse atherosclerotic disease is present. Celiac trunk and mesenteric arteries: No occlusion or significant stenosis. Renal arteries: Large calcified plaque right renal artery origin, suspected high-grade stenosis Right femoral/popliteal arteries: Large severe plaque formation right common femoral artery, suspected high-grade stenosis Left iliac arteries: Severe atherosclerotic plaque bilateral common iliac arteries, suspected high-grade stenoses Liver: Normal. No mass. Gallbladder and bile ducts: Prior cholecystectomy Pancreas: Diffuse calcifications in the pancreas consistent with chronic pancreatitis Spleen: Normal. No splenomegaly. Adrenals: Right adrenal lipoma Kidneys and ureters: Normal. No hydronephrosis. Stomach and bowel: Thickening of the wall of the sigmoid colon, incomplete distension versus colitis Lymph nodes: Unremarkable. No enlarged lymph nodes. Intraperitoneal space: Unremarkable. No free air. No significant fluid collection. Bones/joints: Status post left total hip arthroplasty Soft tissues: Unremarkable. IMPRESSION: 1. Sigmoid colitis versus incomplete distension 2. Severe atherosclerotic disease as above Lab Data Lab results reviewed: Yes I reviewed the patient's lab results. Labs: Laboratory Tests Range/Units 08/07/21 08/07/21 08/07/21 07:46 07:46 07:46 WBC (4.4-10.8) 10^3/uL 10.66 RBC (3.93-5.22) 10^6/uL 3.94 Hgb (11.2-15.7) g/dL 13.1 Hct (36.0-46.0) % 40.3 MCV (80-95) fL 102.3 H MCH (27.0-33.0) pg 33.2 H MCHC (32.0-36.0) % 32.5 RDW (11.7-14.6) % 13.2 Plt Count (130-400) 10^3/uL 161 MPV (8.0-11.0) fL 9.8 Immature Gran % 0.2 Neutrophils % 60.5 Lymphocytes % 28.4 Monocytes % 7.5 Eosinophils % 2.6 Basophils % 0.8 Nucleated RBC % % 0 Absolute Neutrophils (1.2-6.7) 10^3/uL 6.44 Absolute Lymphocytes (1.2-3.4) 10^3/uL 3.03 Absolute Monocytes (0.1-0.8) 10^3/uL 0.80 Absolute Eosinophils (0.0-0.7) 10^3/uL 0.28 Absolute Basophils (0.0-0.2) 10^3/uL 0.09 Sodium (136-145) mmol/L 145 Potassium (3.5-5.1) mmol/L 4.0 Chloride (98-107) mmol/L 109 H Carbon Dioxide (21.0-32.0) mmol/L 26.7 Anion Gap (3-11) mmol/L 9.3 BUN (7-18) mg/dL 24 H Creatinine (0.55-1.02) mg/dL 1.2 H Estimated GFR/1.73 m2 (mL/min/1.73m2) 42.90 Glucose (74-106) mg/dL 107 H Calcium (8.5-10.1) mg/dL 9.3 Magnesium (1.8-2.4) mg/dL 2.4 Total Bilirubin (0.2-1.0) mg/dL 0.4 AST (15-37) U/L 44 H ALT (14-59) U/L 71 H Alkaline Phosphatase (46-116) U/L 80 Troponin I (<0.06) ng/mL < 0.05 Total Protein (6.4-8.2) g/dL 7.7 Albumin (3.4-5.0) g/dL 4.0 Lipase (73-393) U/L 179 TSH (0.36-3.74) uIU/mL 1.31 COVID-19 Source Range/Units 08/07/21 08/07/21 08/07/21 07:46 09:20 10:49 WBC (4.4-10.8) 10^3/uL RBC (3.93-5.22) 10^6/uL Hgb (11.2-15.7) g/dL Hct (36.0-46.0) % MCV (80-95) fL MCH (27.0-33.0) pg MCHC (32.0-36.0) % RDW (11.7-14.6) % Plt Count (130-400) 10^3/uL MPV (8.0-11.0) fL Immature Gran % Neutrophils % Lymphocytes % Monocytes % Eosinophils % Basophils % Nucleated RBC % % Absolute Neutrophils (1.2-6.7) 10^3/uL Absolute Lymphocytes (1.2-3.4) 10^3/uL Absolute Monocytes (0.1-0.8) 10^3/uL Absolute Eosinophils (0.0-0.7) 10^3/uL Absolute Basophils (0.0-0.2) 10^3/uL Sodium (136-145) mmol/L Potassium (3.5-5.1) mmol/L Chloride (98-107) mmol/L Carbon Dioxide (21.0-32.0) mmol/L Anion Gap (3-11) mmol/L BUN (7-18) mg/dL Creatinine (0.55-1.02) mg/dL Estimated GFR/1.73 m2 (mL/min/1.73m2) Glucose (74-106) mg/dL Calcium (8.5-10.1) mg/dL Magnesium (1.8-2.4) mg/dL Total Bilirubin (0.2-1.0) mg/dL AST (15-37) U/L ALT (14-59) U/L Alkaline Phosphatase (46-116) U/L Troponin I (<0.06) ng/mL < 0.05 Total Protein (6.4-8.2) g/dL Albumin (3.4-5.0) g/dL Lipase (73-393) U/L 182 TSH (0.36-3.74) uIU/mL COVID-19 Source Nasal/Nares ECG Data Attestation: I personally reviewed and interpreted this ECG (s) as follows: Interpretation: #1 -- Rate of 71, atrial paced, left bundle branch block, no STEMI. #2 -- Rate of 70, atrial paced, LBBB, no STEMI. HPI General Mode of arrival: ambulatory . Date/Time Provider Initiated Documentation: 08/07/21 07:49 . Limitations to Documentation: no limitations . Information obtained by: patient . HPI Narrative: Patient is an 81-year-old female with a history of coronary artery disease, MT, hypertension, hypothyroidism, peripheral vascular disease, pacemaker and defibrillator, and 6 coronary stents presents from home for intermittent chest and b/l upper abdominal pain since yesterday. Patient states her pain initially started last evening while sitting and watching TV. She describes the pain as an ache which is intermittent under the left and right breast. She states she was able to sleep overnight and then the pain started again while laying in bed this morning. She states the pain is now worse under her right breast. She states the pain has happened in the past before and does not appear consistent with pain that she has had with her previous MT. She states the pain is 6/10 at its worst and currently 4/10. She admits to some shortness of breath with the episode this morning. She has not taken any medication for pain. She denies any radiation of pain. She denies any new dizziness, nausea, cough or fever. She denies any recent change in her medications. She denies any known exposure to coronavirus. Related Data Home Medications Medication Instructions Recorded Confirmed aspirin [Aspirin Low-Strength] 81 mg PO DAILY tab-cap 01/01/13 08/07/21 ipratropium bromide [Atrovent] 2 spry NS BID PRN #1 spray 01/01/13 08/07/21 acetaminophen [Tylenol Extra 1,000 mg PO PRN tab-cap 02/20/14 08/07/21 Strength] calcium carbonate 1,500 mg PO DAILY 05/07/15 08/07/21 Women's 50 Plus Daily Formula 1 ea PO DAILY 07/02/15 08/07/21 cinnamon bark-chromium picolin 500 mg PO DAILY 01/28/16 08/07/21 nitroglycerin 0.4 mg SUBLINGUAL Q 5 MIN PRN #25 05/28/17 08/07/21 tab-cap B-complex with vitamin C 1 tab PO DAILY 07/18/18 08/07/21 ascorbic acid (vitamin C) 500 mg 1,000 mg PO DAILY tab 07/18/18 08/07/21 tablet omega-3 fatty acids 1,000 mg 1,000 mg PO DAILY 07/18/18 08/07/21 capsule amiodarone 200 mg tablet 200 mg PO DAILY #90 tab-cap 08/27/20 08/07/21 atorvastatin 40 mg tablet 40 mg PO DAILY #90 tab 08/27/20 08/07/21 clopidogrel 75 mg tablet 75 mg PO DAILY #90 tab-cap 08/27/20 08/07/21 mexiletine 200 mg capsule 200 mg PO TID #270 tab-cap 10/11/20 08/07/21 levothyroxine 75 mcg capsule 75 mcg PO DAILY #90 cap 01/18/21 08/07/21 blood sugar diagnostic #100 strip 03/15/21 03/15/21 cholecalciferol (vitamin D3) 25 25 mcg PO DAILY 03/15/21 08/07/21 mcg (1,000 unit) capsule lancets 28 gauge #100 each 03/15/21 03/15/21 losartan 50 mg tablet 50 mg PO DAILY #90 tab-cap 03/15/21 08/07/21 metoprolol succinate 50 mg 50 mg PO DAILY #90 tab 03/24/21 08/07/21 tablet,extended release 24 hr Previous Rx's Medication Instructions Recorded amiodarone 200 mg tablet 200 mg PO DAILY #90 tab-cap 08/27/20 atorvastatin 40 mg tablet 40 mg PO DAILY #90 tab 08/27/20 clopidogrel 75 mg tablet 75 mg PO DAILY #90 tab-cap 08/27/20 mexiletine 200 mg capsule 200 mg PO TID #270 tab-cap 10/11/20 levothyroxine 75 mcg capsule 75 mcg PO DAILY #90 cap 01/18/21 blood sugar diagnostic #100 strip 03/15/21 lancets 28 gauge #100 each 03/15/21 losartan 50 mg tablet 50 mg PO DAILY #90 tab-cap 03/15/21 metoprolol succinate 50 mg 50 mg PO DAILY #90 tab 03/24/21 tablet,extended release 24 hr Allergies Allergy/AdvReac Type Severity Reaction Status Date / Time lisinopril AdvReac Unknown COUGH Unverified 08/07/21 07:45 General Stated Complaint: Chest Pain LADAN: 2 Review of Systems All systems reviewed & are unremarkable except as noted in HPI and below Constitutional Constitutional: Reports as per HPI, Denies chills and Denies fever(s) Eyes Eyes: Denies blurry vision ENT Ears, Nose, Mouth, and Throat: Denies dizziness, Denies sore throat and Denies throat swelling Cardiovascular Cardiovascular: Reports chest pain and Reports dyspnea Respiratory Respiratory: Denies cough and Reports dyspnea Gastrointestinal Gastrointestinal: Denies abdominal pain, Denies diarrhea and Denies vomiting Genitourinary Genitourinary: Denies hematuria and Denies dysuria Musculoskeletal Musculoskeletal: Denies back pain and Denies numbness Integumentary/Breasts Skin/Breast: Denies lesions and Denies rash Neurologic Neurologic: Denies dizziness, Denies localized weakness and Denies numbness Allergic/Immunologic Allergic/Immunologic: Denies throat swelling [facility] Active Problem List (Updated 08/07/21 @ 11:32 by Clarice Munson DO) Chest pain (Acute) Upper abdominal pain (Acute) Diabetic retinopathy (Acute ~12/28/20) Hypothyroid (Chronic) PVD (peripheral vascular disease) (Acute) Rosacea (Acute) Polyp of colon (Acute) Essential hypertension (Acute) Hyperlipidemia (Acute 02/04/13) Diabetes mellitus (Acute 02/04/13) Claudication (Acute) Chronic rhinitis (Acute 01/29/14) Cardiac defibrillator in place (Acute 03/16/15) Amputated below knee (Acute 08/16/13) Coronary atherosclerosis (Acute) Ischemic cardiomyopathy (Acute) Medical History (Updated 08/07/21 @ 11:32 by Clarice Munson DO) Femur fracture, left (05/12/18) Fracture of femoral neck, left, closed Fracture of greater trochanter of left femur (~03/12/19) Fracture of neck of left femur (05/12/18) Hip fracture, left She is recovering/ed fine from this and seems to be ambulating with relative ease and no discomfort. 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 04/29 [facility]; left iliofemoral endarterectomy with patch and arterioplasty, left SFA stent from D4 toe ischemia. Ligation of fallopian tube Open Carpal Tunnel release (~07/2008) Family History (Updated 03/11/20 @ 14:00 by Mathieu Vela) Mother , 80s Stroke Father Essential hypertension Heart disease Sister Diabetes Maternal Grandfather No problems noted. Paternal Grandfather No problems noted. Maternal Grandmother No problems noted. Paternal Grandmother No problems noted. FAMILY HISTORY Stroke GRANDPARENT Sister Diabetes Essential hypertension Cancer Sister Diabetes Essential hypertension Stroke Son No problems noted. Daughter No problems noted. Social History (Updated 03/11/20 @ 13:59 by Mathieu Vela) Smoking/Tobacco Use Status: Former Tobacco Use Tobacco: How many years used: 25 Smoking risk assessment performed?: Yes Alcohol Intake: never Drug use: Never Substance use type: does not use Caregiver/Support person: Yes Household members: none Number of Children: 2 Communication Needs: None Pets and animals: No Sexually active: No Do you think of yourself as: straight/heterosexual What is your relationship status?: How often do you talk on the phone with friends or family?: three or more times per week How often do you get together with friends or relatives?: three or more times per week How often do you attend roman catholic or tenriism services?: 4 or more times per year Do you belong to any clubs or organized social groups?: decline to answer Panel score (0-1 are the most socially isolated patients): 2 What type of physical activity do you participate in: other Details: leg exercises Duration: < 15 minutes/day Frequency: 1-2 times per week Miguelina/Baptism: Judaism Special miguelina needs: No Seatbelt use: always Helmet use: No Drive intox or ride w/intox 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: No Do you feel safe at home: Yes Do you feel safe in your relationship?: Yes History History Para 2 Hx # Term Pregnancies Multiple births Hx # Pregnancies Ectopic pregnancies AB induced Hx Number of Living Children AB spontaneous Exam Const General: cooperative, healthy appearing and no acute distress HENMT Head: normal to inspection Face and sinus: normal facial exam Eyes General: appearance normal, both eyes and all related structures Pupils: PERRL EOM: EOM intact bilaterally Neck Neck: normal visual inspection and No submandibular swelling Lymphatic: no lymphadenopathy noted Chest Chest: normal inspection of the chest and no tenderness Resp Effort & Inspection: normal respiratory effort and able to speak in complete sentences Auscultation: clear to auscultation bilaterally Cardio Rate: regular rate Rhythm: regular rhythm GI Inspection: normal to inspection Palpation: soft, not firm, not rigid and nontender Auscultation: normal bowel sounds Back/Spine/Pelvis Thoracic/Lumbar Spine: thoracic and lumbar spine normal to inspection Pelvis: no pain with anterior-posterior compression Skin General skin exam: no rashes or lesions noted Neuro General: patient alert, patient awake and patient oriented x3 Cognition: normal cognition Speech: speech normal Motor: muscle tone normal throughout Sensory Exam: no sensory deficits noted Extrem General: normal to inspection, full ROM, capillary refill normal, no calf tenderness bilaterally and no edema Psych Appearance: grossly normal Mental Status: mental status grossly normal Speech and Movement: speech and movement normal Affect: normal affect Course Vital Signs Vital signs: Vital Signs Temperature 98.5 F 08/07/21 07:30 Pulse 79 08/07/21 07:30 Respiratory Rate 18 08/07/21 07:30 Blood Pressure 152/57 H 08/07/21 07:30 Pulse Oximetry 100 08/07/21 07:30 Temperature 98.5 F 08/07/21 07:30 Pulse 79 08/07/21 07:30 Respiratory Rate 18 08/07/21 07:30 Respiratory Effort 08/07/21 07:42 Blood Pressure 152/57 H 08/07/21 07:30 Blood Pressure Position Supine 08/07/21 07:30 Pulse Oximetry 100 08/07/21 07:30 Oxygen Delivery Method Room Air 08/07/21 07:30 Oxygen Flow Rate 0 08/07/21 07:30 Pain Level 7 08/07/21 07:30
[2021-08-07 07:58] LABS: Abs Immature Grans 0.02 10^3/uL (0.0-0.06); Absolute Basophil Count 0.09 10^3/uL (0.0-0.2); Absolute Eosinophil Count 0.28 10^3/uL (0.0-0.7); Absolute Lymphocyte Count 3.03 10^3/uL (1.2-3.4); Absolute Neutrophil Count 6.44 10^3/uL (1.2-6.7); Basophils % 0.8; Eosinophils % 2.6; HCT 40.3 % (36.0-46.0); HGB 13.1 g/dL (11.2-15.7); Immature Grans % 0.2; Lymphocytes % 28.4; MCH 33.2 pg (27.0-33.0); MCHC 32.5 % (32.0-36.0); MCV 102.3 fL (80-95); MPV 9.8 fL (8.0-11.0); Monocytes % 7.5; Neutrophils % 60.5; Nucleated RBC 0 %; Platelet Count 161 10^3/uL (130-400); RBC 3.94 10^6/uL (3.93-5.22); RDW 13.2 % (11.7-14.6); RDW-SD 50.1 fL; WBC 10.66 10^3/uL (4.4-10.8)
[2021-08-07] MEDS: Normal Saline Flush 10 ML SYR IVP ×2 (08:00→09:01)
[2021-08-07 08:15] LABS: ALT 71 U/L (14-59); AST 44 U/L (15-37); Alkaline Phosphatase 80 U/L (46-116); Anion Gap 9.3 mmol/L (3-11); BUN 24 mg/dL (7-18); Bilirubin, Total 0.4 mg/dL (0.2-1.0); CO2 26.7 mmol/L (21.0-32.0); CREATININE 1.2 mg/dL (0.55-1.02); Calcium 9.3 mg/dL (8.5-10.1); Chloride 109 mmol/L (98-107); Glucose 107 mg/dL (74-106); Lipase 179 U/L (73-393); Magnesium 2.4 mg/dL (1.8-2.4); Sodium 145 mmol/L (136-145); Total Protein 7.7 g/dL (6.4-8.2)
--- NOTE | 2021-08-07 08:15 | DI.CT_ITS ---
Exam(s) CT CHEST PE ABD PELVIS W EXAM: CT CHEST PE ABD PELVIS W TECHNIQUE: CT angiography of the chest, abdomen and pelvis was performed with bolus infusion of 150 cc of Omnipaque 350. Axial CT angiography was performed with multi-slice acquisition and multi-planar and/or 3D reconstruc tions. COMPARISON: No exams were available for comparison FINDINGS: The lungs are predominantly clear with some mosaic attenuation of dependent portions of the lungs pe riod. There is a transvenous cardiac pacemaker. There are coronary artery calcifications and mitral annulu s calcifications. No pleural effusion. No evidence of pulmonary embolic disease. No thoracic aortic dissection or aneurysm. Major branches of the thoracic aorta appear normal. No pleural effusion. No mediastinal or hilar adenopathy. Tracheobronchial tree appears intact. No focal hepatic abnormality seen.. Gallbladder nonvisualized. Bile ducts are CT normal. Pancreas i s unremarkable. Spleen is unremarkable. There are small cysts of the right kidney. There is a tiny nonobstructing left renal calcification. No ureteral calcification seen. Urinary bladder suboptimally visualized due to artifact from left h ip prosthesis but no gross abnormality of the urinary bladder is seen. There is severe atheromatous change of the abdominal aorta with a heavily calcified wall. A heavily calcified apparent old dissection or mural thrombus is noted in the distal portion of the abdominal a willam. There is a probable high-grade stenosis of right renal artery. There is severe atheromatous plaque o f both common iliac arteries, probable high-grade stenosis. There is a probable high-grade stenosis o f the right common femoral artery. No abdominal or pelvic adenopathy. Normal appendix. No significant abdominal wall hernia. No focal scooby wel pathology. Note is made of possible low wall thickening of the stomach, please correlate regarding the possibili ty of gastritis. IMPRESSION: No evidence of acute vascular abnormality of the chest, abdomen or pelvis. Possible gastritis. Please correlate clinically. RADIATION DOSE DELIVERED: 1,553.34mGy.cm Total DLP 1,553.34mGy.cm Total DLP CTDIvol DATA REPOSITORY: All CT scans at this facility are submitted to the National Radiology Data Registry (NRDR) Dose Index Registry (DIR) with the [employer] ([employer]). RADIATION OPTIMIZATION: All CT scans at this facility use at least one of these dose optimization te chniques: automated exposure control; mA and/or kV adjustment per patient size (includes targeted exa ms where dose is matched to clinical indication); or iterative reconstruction.
[2021-08-07 08:16] LABS: Troponin I < 0.05 ng/mL (<0.06)
[2021-08-07 08:23] LABS: TSH (W/Ref FT4) 1.31 uIU/mL (0.36-3.74)
[2021-08-07] MEDS: Normal Saline - Diluent 50 ML VIAL 100 ML IV (08:59)
[2021-08-07] MEDS: Omnipaque 350 MG/ML 50 ML BTL IJ (09:00)
[2021-08-07] MEDS: FAMOTIDINE 20 MG/50 ML BAG 200 MG IVPB (09:00)
[2021-08-07] MEDS: Normal Saline 250 ML 500 ML IV (09:01)
[2021-08-07 09:07] VITALS: RESP 14
--- NOTE | 2021-08-07 09:20 | DI.VRAD_ITS ---
PROCEDURE INFORMATION: Exam: CTA Chest With Contrast Exam date and time: 08/07/2021 8:18 AM Age: 81 years old Clinical indication: Other: Chest pain/epigastric pain TECHNIQUE: Imaging protocol: Computed tomographic angiography of the chest with contrast. 3D rendering (Not supervised by radiologist): MIP and/or 3D reconstructed images were created by the technologist. Radiation optimization: All CT scans at this facility use at least one of these dose optimization techniques: automated exposure control; mA and/or kV adjustment per patient size (includes targeted exams where dose is matched to clinical indication); or iterative reconstruction. Contrast material: OMNIPAQUE 350; Contrast volume: 150 ml; Contrast route: INTRAVENOUS (IV); COMPARISON: CR XR CHEST 2V PA LATERAL 07/04/2018 11:20 AM FINDINGS: Tubes, catheters and devices: AICD left chest wall Pulmonary arteries: Normal. No pulmonary emboli. Aorta: Unremarkable. No aortic aneurysm. No aortic dissection. Lungs: Unremarkable. No consolidation. No masses. Pleural spaces: Unremarkable. No pneumothorax. No pleural effusion. Heart: Mitral annular calcifications. Coronary artery atherosclerotic disease Lymph nodes: Unremarkable. No enlarged lymph nodes. Diaphragm: Small hiatal hernia Bones/joints: Unremarkable. No acute fracture. Soft tissues: Unremarkable. IMPRESSION: 1. No evidence of pulmonary emboli 2. No evidence of pneumonia PROCEDURE INFORMATION: Exam: CT Angiography Abdomen With Contrast Exam date and time: 08/07/2021 8:18 AM Age: 81 years old Clinical indication: Other: Chest pain/epigastric pain TECHNIQUE: Imaging protocol: Computed tomographic angiography images of the abdomen with intravenous contrast material. 3D rendering (Not supervised by radiologist): MIP and/or 3D reconstructed images were created by the technologist. Radiation optimization: All CT scans at this facility use at least one of these dose optimization techniques: automated exposure control; mA and/or kV adjustment per patient size (includes targeted exams where dose is matched to clinical indication); or iterative reconstruction. Contrast material: OMNIPAQUE 350; Contrast volume: 150 ml; Contrast route: INTRAVENOUS (IV); COMPARISON: CR XR CHEST 2V PA LATERAL 07/04/2018 11:20 AM FINDINGS: Aorta: Small focal chronic contained dissection distal abdominal aorta. Severe diffuse atherosclerotic disease is present. Celiac trunk and mesenteric arteries: No occlusion or significant stenosis. Renal arteries: Large calcified plaque right renal artery origin, suspected high-grade stenosis Right femoral/popliteal arteries: Large severe plaque formation right common femoral artery, suspected high-grade stenosis Left iliac arteries: Severe atherosclerotic plaque bilateral common iliac arteries, suspected high-grade stenoses Liver: Normal. No mass. Gallbladder and bile ducts: Prior cholecystectomy Pancreas: Diffuse calcifications in the pancreas consistent with chronic pancreatitis Spleen: Normal. No splenomegaly. Adrenals: Right adrenal lipoma Kidneys and ureters: Normal. No hydronephrosis. Stomach and bowel: Thickening of the wall of the sigmoid colon, incomplete distension versus colitis Lymph nodes: Unremarkable. No enlarged lymph nodes. Intraperitoneal space: Unremarkable. No free air. No significant fluid collection. Bones/joints: Status post left total hip arthroplasty Soft tissues: Unremarkable. IMPRESSION: 1. Sigmoid colitis versus incomplete distension 2. Severe atherosclerotic disease as above Dictated and Authenticated by: Waleska Gregg MD. Ordering:CINTHIA Oneil MD
[2021-08-07 09:27] LABS: Source Nasal/Nares
[2021-08-07 09:39] LABS: Lipase 182 U/L (73-393)
--- NOTE | 2021-08-07 10:00 | RT.EKG_ITS ---
APPROVED REPORT Exam: Resting ECG Reason for Exam: epigastric pain Patient Location: E HR:70 bpm ECG Measurements Heart Rate 70 AXIS ID 199 P [id number] QRSd 126 QRS 93 QT 459 T -67 QTc 494 Conclusion Atrial-paced complexes...other complexes also detected Nonspecific intraventricular conduction delay...QRSd >115mS, not LBBB/RBBB Anterior infarct, old...Q >40mS, abnormal ST-T, V2-V5. Atrial paced. LBBB. No STEMI.
[2021-08-07 11:14] LABS: Troponin I < 0.05 ng/mL (<0.06)
[2021-08-07 11:44] VITALS: BP 129/49; PULSE 70; RESP 16; TEMP 36.4; O2SAT 98
[2021-08-07 12:50] LABS: COVID-19 PCR Negative (Negative)
== END 2021-08-07 11:42 | disposition home or self-care (01) ==
PROVIDERS: Emergency Medicine; Emergency Provider Physician Assistant; PCP Nurse Practitioner
DX: R07.9 Chest pain, unspecified (principal); R10.10 Upper abdominal pain, unspecified; I10 Essential (primary) hypertension; Z20.822 Contact with and (suspected) exposure to COVID-19
CPT/HCPCS: 36415; 71275; 74177; 80053; 83690; 87635; 93005; 96361; 96374; 99285; 83735; 84443; 84484; 85025; 93010; 99284; Q9967

== ENCOUNTER 2021-09-07 02:55 | Outpatient (CLI) | payer MEDICARE, OTHER, SELFPAY ==
[2021-09-07 09:19] LABS: Hemoglobin A1C 5.6 % (<5.7)
== END 2021-09-07 02:56 | disposition home or self-care (01) ==
LOC: LBO 02:56
PROVIDERS: PCP Nurse Practitioner; Visit Provider Nurse Practitioner
DX: E11.9 Type 2 diabetes mellitus without complications (principal)
CPT/HCPCS: 36415; 83036

== ENCOUNTER 2021-11-03 11:50 | Emergency (ER) | payer MEDICARE, SELFPAY ==
[2021-11-03] VITALS (33 sets, daily range): BP systolic 113–157; BP diastolic 49–106; PULSE 68–77; RESP 10–28; TEMP 36.3; O2SAT 98–100
--- NOTE | 2021-11-03 11:45 | RT.EKG_ITS ---
APPROVED REPORT Exam: Resting ECG Reason for Exam: lightheadedness Patient Location: E HR:72 bpm ECG Measurements Heart Rate 72 AXIS WV 223 P [id number] QRSd 131 QRS -36 QT 445 T 72 QTc 488 Conclusion Atrial-paced rhythm Left bundle branch block...QRSd>120, broad/notched R
--- NOTE | 2021-11-03 12:15 | DI.RAD_ITS ---
Exam(s) XR CHEST 2V PA LATERAL EXAM: XR CHEST 2V PA LATERAL CLINICAL HISTORY: L sided chest pain TECHNIQUE: 2D digital imaging was performed of the chest. Two images were obtained. PA and lateral views were obtained. COMPARISON: CR XR CHEST 2V PA LATERAL from 07/04/2018 FINDINGS: MEDIASTINUM: Normal. HEART: Normal. Mitral valve calcifications are present. Pacing wires are stable in position. PULMONARY VASCULATURE: Normal. LUNGS: Clear. PLEURAL SPACE: No pleural effusion or pneumothorax. BONE:Within normal limits for the patient's age. OTHER FINDINGS:Normal. IMPRESSION: No acute pulmonary findings. DATA REPOSITORY: RADIATION DOSE DELIVERED:
--- NOTE | 2021-11-03 12:19 | W.ED.GENAD ---
Discharge Plan Disposition Patient Disposition: HOME Condition: Improving Discharge Details Clinical Impression: Light-headedness, Weakness Primary Care Provider: Génesis Lara ED Provider: Howard Chao Home Meds and New Rx's Prescriptions: Continued omega-3 fatty acids [Fish Oil Concentrate] 1,000 mg capsule 1,000 mg PO DAILY 0RF B-complex with vitamin C tablet 1 tab PO DAILY 0RF ipratropium bromide 21 mcg (0.03 %) spray,non-aerosol 2 spray NS BID PRN Qty: 30 4RF Rx Instructions: 0.03% NASAL SPRAY cholecalciferol (vitamin D3) 25 mcg (1,000 unit) capsule 25 mcg PO DAILY 0RF (DME) lancets 28 gauge misc 1 ea Miscellaneous DAILY Qty: 100 4RF Rx Instructions: FOR freestyle Dx: Type 2 DM on oral meds (E11.9) test once/day (DME) FreeStyle Lite Strips Strip 1 strip Miscellaneous DAILY Qty: 100 11RF Rx Instructions: DX: E11.9 on oral meds losartan 50 mg tablet 50 mg PO DAILY Qty: 90 4RF Rx Instructions: note increased dose memantine [Namenda] 5 mg tablet 5 mg PO BID Qty: 60 11RF aspirin [Aspirin Low-Strength] 81 MG tablet,chewable 81 mg PO DAILY 0RF acetaminophen [Tylenol Extra Strength] 500 MG tablet 1,000 mg PO PRN 0RF calcium carbonate 500 MG tablet 1,500 mg PO DAILY 0RF Women's 50 Plus Daily Formula 1 EACH tablet 1 ea PO DAILY 0RF cinnamon bark-chromium picolin 1 EACH capsule 500 mg PO DAILY 0RF nitroglycerin 0.4 MG tablet, sublingual 0.4 mg Sublingual Q 5 MIN PRN Qty: 25 11RF ascorbic acid (vitamin C) 500 mg tablet 1,000 mg PO DAILY 0RF mexiletine 200 mg capsule 200 mg PO TID Qty: 270 4RF levothyroxine 75 mcg capsule 75 mcg PO DAILY Qty: 90 3RF metoprolol succinate 50 mg tablet extended release 24 hr 50 mg PO DAILY Qty: 90 3RF amiodarone 200 mg tablet 200 mg PO DAILY Qty: 90 3RF Rx Instructions: atorvastatin 40 mg tablet 40 mg PO DAILY Qty: 90 3RF clopidogrel 75 mg tablet 75 mg PO DAILY Qty: 90 4RF Discharge Instructions Instructions: Weakness (ED) Additional Instructions: At this time your work-up in ER does not reveal any obvious emergent process. You have responded nicely to IV fluid, were able to eat dinner without difficulty, and are currently asymptomatic, back to baseline. Please watch for new or worsening symptoms and return to the ER for any concerns. Lastly, I recommend contacting your primary care provider tomorrow to discuss your ER visit and need for outpatient reevaluation. Medical Decision Making This is an 81-year-old female with extensive past medical history presenting to the ER via EMS after having a fleeting sensation of lightheadedness and generalized weakness after moving quickly while doing the dishes around 10 AM. She states that she had a sudden sharp pain on her left side that took her breath later that resolved completely. Clinically she appears well, nontoxic, hemodynamically stable, pulse in the 70s, O2 sat 100% on room air. She is currently asymptomatic. Given her age, multiple comorbidities, I would like to initiate a cardiac work-up as well as obtaining a D-dimer. Low suspicion for ACS, she did take a baby aspirin, I would like to provide 3 additional baby aspirin and initiate a liter of IV fluid. Initial laboratory values are unremarkable for any obvious emergent process. Her D-dimer is 706 6 but when age-adjusted this is negative. Electrolytes are unremarkable. Creatinine of 1.2 with a GFR of 42.90 which appears to be near her base. No evidence of leukocytosis. Magnesium 2.2 with a troponin less than 50. Urinalysis is unremarkable. Chest x-ray is also unremarkable We discussed her initial laboratory values and she is currently relieved and remains asymptomatic. She does tell me that when she got up to use the restroom she thought maybe that sensation was coming back but it quickly resolved. Subsequently after receiving the IV fluid she had gotten up and reports that she has not had that sensation again and remains asymptomatic. She is agreeable to awaiting a repeat troponin. In the meantime she will be p.o. challenged patient able to eat lunch without any coughing whatsoever. She was ambulatory without difficulty and remained asymptomatic. Delta troponin remains less than 50. Discussed repeat troponin with patient she remains asymptomatic and is relieved. We discussed options and disposition. She states that she feels asymptomatic and is comfortable being discharged home in her current condition. Strict discharge and return precautions were provided. We also discussed the importance of contacting her primary care provider tomorrow to discuss her ER visit, symptoms that prompted her ER visit, and the need for outpatient reevaluation. This documentation was generated using [employer] system, please disregard any oddities of phrase or misspellings. Medical Records Medical records reviewed: Yes I reviewed the patient's medical records. Imaging Data Radiologic Study: Attestation: I personally reviewed and interpreted this imaging study as follows: Imaging: X-Ray Radiologist's impression: Exam(s) XR CHEST 2V PA LATERAL EXAM: XR CHEST 2V PA LATERAL CLINICAL HISTORY: L sided chest pain TECHNIQUE: 2D digital imaging was performed of the chest. Two images were obtained. PA and lateral views were obtained. COMPARISON: CR XR CHEST 2V PA LATERAL from 07/04/2018 FINDINGS: MEDIASTINUM: Normal. HEART: Normal. Mitral valve calcifications are present. Pacing wires are stable in position. PULMONARY VASCULATURE: Normal. LUNGS: Clear. PLEURAL SPACE: No pleural effusion or pneumothorax. BONE:Within normal limits for the patient's age. OTHER FINDINGS:Normal. IMPRESSION: No acute pulmonary findings. Lab Data Lab results reviewed: Yes I reviewed the patient's lab results. Labs: Laboratory Tests Range/Units 11/03/21 11/03/21 11/03/21 12:17 12:17 12:49 WBC (4.4-10.8) 10^3/uL 8.12 RBC (3.93-5.22) 10^6/uL 3.96 Hgb (11.2-15.7) g/dL 13.2 Hct (36.0-46.0) % 40.9 MCV (80-95) fL 103.3 H MCH (27.0-33.0) pg 33.3 H MCHC (32.0-36.0) % 32.3 RDW (11.7-14.6) % 12.9 Plt Count (130-400) 10^3/uL 169 MPV (8.0-11.0) fL 10.3 Immature Gran % 0.2 Neutrophils % 64.7 Lymphocytes % 23.9 Monocytes % 8.0 Eosinophils % 2.5 Basophils % 0.7 Nucleated RBC % % 0 Absolute Neutrophils (1.2-6.7) 10^3/uL 5.25 Absolute Lymphocytes (1.2-3.4) 10^3/uL 1.94 Absolute Monocytes (0.1-0.8) 10^3/uL 0.65 Absolute Eosinophils (0.0-0.7) 10^3/uL 0.20 Absolute Basophils (0.0-0.2) 10^3/uL 0.06 D-Dimer (<500) ng/mlFEU 766 H Sodium (136-145) mmol/L 139 Potassium (3.5-5.1) mmol/L 4.3 Chloride (98-107) mmol/L 105 Carbon Dioxide (21.0-32.0) mmol/L 26.9 Anion Gap (3-11) mmol/L 7.1 BUN (7-18) mg/dL 21 H Creatinine (0.55-1.02) mg/dL 1.2 H Estimated GFR/1.73 m2 (mL/min/1.73m2) 42.90 Glucose (74-106) mg/dL 105 Calcium (8.5-10.1) mg/dL 9.3 Magnesium (1.8-2.4) mg/dL 2.2 Total Bilirubin (0.2-1.0) mg/dL 0.4 AST (15-37) U/L 50 H ALT (14-59) U/L 55 Alkaline Phosphatase (46-116) U/L 75 Troponin I (<or=60) ng/L < 50 Total Protein (6.4-8.2) g/dL 7.5 Albumin (3.4-5.0) g/dL 3.8 Urine Color (Yellow) Urine Clarity (Clear) Urine pH (5-8) Ur Specific [place] (1.005-1.025) Urine Protein (Negative) mg/dL Urine Ketones (Negative) mg/dL Urine Blood (Negative) Urine Nitrite (Negative) Urine Bilirubin (Negative) Urine Urobilinogen (Up TO 0.2) EU/dL Ur Leukocyte Esterase (Negative) Urine Glucose (Negative) mg/dL COVID-19 Source SARS-CoV-2 (PCR) (Negative) Range/Units 11/03/21 11/03/21 11/03/21 12:50 14:13 15:17 WBC (4.4-10.8) 10^3/uL RBC (3.93-5.22) 10^6/uL Hgb (11.2-15.7) g/dL Hct (36.0-46.0) % MCV (80-95) fL MCH (27.0-33.0) pg MCHC (32.0-36.0) % RDW (11.7-14.6) % Plt Count (130-400) 10^3/uL MPV (8.0-11.0) fL Immature Gran % Neutrophils % Lymphocytes % Monocytes % Eosinophils % Basophils % Nucleated RBC % % Absolute Neutrophils (1.2-6.7) 10^3/uL Absolute Lymphocytes (1.2-3.4) 10^3/uL Absolute Monocytes (0.1-0.8) 10^3/uL Absolute Eosinophils (0.0-0.7) 10^3/uL Absolute Basophils (0.0-0.2) 10^3/uL D-Dimer (<500) ng/mlFEU Sodium (136-145) mmol/L Potassium (3.5-5.1) mmol/L Chloride (98-107) mmol/L Carbon Dioxide (21.0-32.0) mmol/L Anion Gap (3-11) mmol/L BUN (7-18) mg/dL Creatinine (0.55-1.02) mg/dL Estimated GFR/1.73 m2 (mL/min/1.73m2) Glucose (74-106) mg/dL Calcium (8.5-10.1) mg/dL Magnesium (1.8-2.4) mg/dL Total Bilirubin (0.2-1.0) mg/dL AST (15-37) U/L ALT (14-59) U/L Alkaline Phosphatase (46-116) U/L Troponin I (<or=60) ng/L < 50 Total Protein (6.4-8.2) g/dL Albumin (3.4-5.0) g/dL Urine Color (Yellow) Yellow Urine Clarity (Clear) Clear Urine pH (5-8) 7.0 Ur Specific [place] (1.005-1.025) 1.015 Urine Protein (Negative) mg/dL Negative Urine Ketones (Negative) mg/dL Negative Urine Blood (Negative) Negative Urine Nitrite (Negative) Negative Urine Bilirubin (Negative) Negative Urine Urobilinogen (Up TO 0.2) EU/dL 0.2 Ur Leukocyte Esterase (Negative) Negative Urine Glucose (Negative) mg/dL Negative COVID-19 Source Nasal SARS-CoV-2 (PCR) (Negative) Negative ECG Data Attestation: I personally reviewed and interpreted this ECG (s) as follows: Interpretation: Please see official report by Dr. Howe, atrial paced rhythm, ventricular rate 72, left bundle branch block. HPI General Mode of arrival: EMS. Date/Time Provider Initiated Documentation: 11/03/21 11:55. Limitations to Documentation: no limitations. Information obtained by: patient and EMS. HPI Narrative: This is an 81 female, past medical history that includes IL, pacemaker, polymyalgia rheumatica, former smoker, PVD, hypertension, diabetes, presents to the ER via EMS reporting around 10 AM this morning while washing dishes she turned around quickly and felt a lightheaded sensation. She also states that she has a sudden sharp pain on the left side of her flank, unclear if this was chest or abdomen, and for sudden pain took her breath away. The sudden pain and breathlessness station resolved after a few seconds on its own. She states that she took a nitro and is unsure if that subsequently made any of her symptoms different. She states that the lightheaded sensation lasted for a short period of time but by the time she got evaluated by EMS and then transferred to the ER she states that she is asymptomatic. She denies recent illness or trauma. Denies headache, visual changes, neck pain, chest pain, cough, abdominal pain, nausea, vomiting, focal weakness, numbness or tingling. Related Data Home Medications Medication Instructions Recorded Confirmed aspirin 81 mg chewable tablet 81 mg PO DAILY tab-cap 01/01/13 11/03/21 (Aspirin Low-Strength) acetaminophen 500 mg tablet 1,000 mg PO PRN tab-cap 02/20/14 11/03/21 (Tylenol Extra Strength) calcium carbonate 500 mg calcium 1,500 mg PO DAILY 05/07/15 11/03/21 (1,250 mg) tablet [id number] ac 400 1 ea PO DAILY 07/02/15 11/03/21 mcg-calcium carb 500 mg-vit K1 20 mcg tablet (Women's 50 Plus Daily Formula) cinnamon bark-chromium picolinate 500 mg PO DAILY 01/28/16 11/03/21 500 mg-100 mcg capsule nitroglycerin 0.4 mg sublingual 0.4 mg SUBLINGUAL Q 5 MIN PRN #25 05/28/17 11/03/21 tablet tab-cap B-complex with vitamin C 1 tab PO DAILY 07/18/18 11/03/21 ascorbic acid (vitamin C) 500 mg 1,000 mg PO DAILY tab 07/18/18 11/03/21 tablet omega-3 fatty acids 1,000 mg 1,000 mg PO DAILY 07/18/18 11/03/21 capsule (Fish Oil Concentrate) mexiletine 200 mg capsule 200 mg PO TID #270 tab-cap 10/11/20 11/03/21 levothyroxine 75 mcg capsule 75 mcg PO DAILY #90 cap 01/18/21 11/03/21 blood sugar diagnostic (FreeStyle #100 strip 03/15/21 10/27/21 Lite Strips) cholecalciferol (vitamin D3) 25 25 mcg PO DAILY 03/15/21 11/03/21 mcg (1,000 unit) capsule lancets 28 gauge #100 each 03/15/21 10/27/21 losartan 50 mg tablet 50 mg PO DAILY #90 tab-cap 03/15/21 11/03/21 metoprolol succinate 50 mg 50 mg PO DAILY #90 tab 03/24/21 11/03/21 tablet,extended release 24 hr ipratropium bromide 21 mcg (0.03 2 spray NS BID PRN #30 ml 08/23/21 11/03/21 %) nasal spray amiodarone 200 mg tablet 200 mg PO DAILY #90 tab-cap 09/02/21 11/03/21 atorvastatin 40 mg tablet 40 mg PO DAILY #90 tab 09/02/21 11/03/21 clopidogrel 75 mg tablet 75 mg PO DAILY #90 tab-cap 10/03/21 11/03/21 memantine 5 mg tablet (Namenda) 5 mg PO BID #60 tab 10/11/21 11/03/21 Previous Rx's Medication Instructions Recorded mexiletine 200 mg capsule 200 mg PO TID #270 tab-cap 10/11/20 levothyroxine 75 mcg capsule 75 mcg PO DAILY #90 cap 01/18/21 blood sugar diagnostic (FreeStyle #100 strip 03/15/21 Lite Strips) lancets 28 gauge #100 each 03/15/21 losartan 50 mg tablet 50 mg PO DAILY #90 tab-cap 03/15/21 metoprolol succinate 50 mg 50 mg PO DAILY #90 tab 03/24/21 tablet,extended release 24 hr ipratropium bromide 21 mcg (0.03 2 spray NS BID PRN #30 ml 08/23/21 %) nasal spray amiodarone 200 mg tablet 200 mg PO DAILY #90 tab-cap 09/02/21 atorvastatin 40 mg tablet 40 mg PO DAILY #90 tab 09/02/21 clopidogrel 75 mg tablet 75 mg PO DAILY #90 tab-cap 10/03/21 memantine 5 mg tablet (Namenda) 5 mg PO BID #60 tab 10/11/21 Allergies Allergy/AdvReac Type Severity Reaction Status Date / Time lisinopril AdvReac Unknown COUGH Unverified 11/03/21 12:11 General Stated Complaint: Dizzy/Sync LADAN: 3 Review of Systems Constitutional Constitutional: Denies fatigue, Denies fever(s), Denies headache(s) and Reports weakness (Generalized sensation) Eyes Eyes: Denies change in vision ENT Ears, Nose, Mouth, and Throat: Denies headache(s) and Denies neck pain Cardiovascular Cardiovascular: Denies chest pain and Reports dyspnea Respiratory Respiratory: Denies cough and Reports dyspnea Gastrointestinal Gastrointestinal: Denies abdominal pain, Denies nausea and Denies vomiting Genitourinary Genitourinary: Denies dysuria Musculoskeletal Musculoskeletal: Denies back pain, Denies neck pain, Denies numbness and Denies tingling Integumentary/Breasts Skin/Breast: Denies rash Neurologic Neurologic: Denies headache(s), Denies numbness, Denies tingling and Reports weakness (Generalized sensation) Psychiatric Psychiatric: Reports anxiety Endocrine Endocrine: Denies fatigue Hematologic/Lymphatic Hematologic/Lymphatic: Reports easy bleeding and Reports easy bruising PFSH All Active Problems Light-headedness (Acute) Weakness (Acute) Mild cognitive impairment (Acute) Diabetic retinopathy (Acute ~12/28/20) 12/28/20 [place]E-MILD B/L-KB Hypothyroid (Chronic) PVD (peripheral vascular disease) (Acute) Rosacea (Acute) Polyp of colon (Acute) tubular adenoma Essential hypertension (Acute) Hyperlipidemia (Acute 02/04/13) Diabetes mellitus (Acute 02/04/13) diet controlled Claudication (Acute) Chronic rhinitis (Acute 01/29/14) Cardiac defibrillator in place (Acute 03/16/15) Amputated below knee (Acute 08/16/13) [facility] 06/29 left leg BKA due to PVD phantom pain Coronary atherosclerosis (Acute) Ischemic cardiomyopathy (Acute) Medical History Femur fracture, left (05/12/18) Fracture of femoral neck, left, closed Fracture of greater trochanter of left femur (~03/12/19) Fracture of neck of left femur (05/12/18) Hip fracture, left She is recovering/ed fine from this and seems to be ambulating with relative ease and no discomfort. History of ventricular tachycardia Ischial bursitis of right side (04/20/17) Myocardial infarction involving left main coronary artery (02/17/15) [facility] cath left main 95% lesion, stented LVEF after IL 25% 04/13/[address] 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 04/29 [facility]; left iliofemoral endarterectomy with patch and arterioplasty, left SFA stent from D4 toe ischemia. Ligation of fallopian tube Open Carpal Tunnel release (~07/2008) Family History Mother , 80s Stroke Father Essential hypertension Heart disease Sister Diabetes Maternal Grandfather No problems noted. Paternal Grandfather No problems noted. Maternal Grandmother No problems noted. Paternal Grandmother No problems noted. FAMILY HISTORY Stroke GRANDPARENT Sister Diabetes Essential hypertension Cancer Sister Diabetes Essential hypertension Stroke Son No problems noted. Daughter No problems noted. Social History Smoking/Tobacco Use Status: Former Tobacco Use Tobacco: How many years used: 25 Smoking risk assessment performed?: Yes Alcohol Intake: never Drug use: Never Substance use type: does not use Caregiver/Support person: Yes Household members: none Number of Children: 2 Communication Needs: None Pets and animals: No Sexually active: No Do you think of yourself as: straight/heterosexual What is your relationship status?: How often do you talk on the phone with friends or family?: three or more times per week How often do you get together with friends or relatives?: three or more times per week How often do you attend baptism or moravian services?: 4 or more times per year Do you belong to any clubs or organized social groups?: decline to answer Panel score (0-1 are the most socially isolated patients): 2 What type of physical activity do you participate in: other Details: leg exercises Duration: < 15 minutes/day Frequency: 1-2 times per week Miguelina/Bahai: Rastafarian Special miguelina needs: No Seatbelt use: always Helmet use: No Drive intox or ride w/intox waste collection driver: No Do you feel safe at home: Yes Do you feel safe in your relationship?: Yes History History Para 2 Hx # Term Pregnancies Multiple births Hx # Pregnancies Ectopic pregnancies AB induced Hx Number of Living Children AB spontaneous Exam Const General: cooperative, healthy appearing, comfortable and no acute distress Orientation: alert, awake and oriented x3 HENMT Head: normal to inspection, normocephalic and atraumatic Face and sinus: normal facial exam Mouth: moist mucous membranes Eyes General: appearance normal, both eyes and all related structures Alignment and Position: alignment normal Periorbital: periorbital findings normal Eyelids: eyelids normal Conjunctivae: conjunctivae normal Sclera: sclerae normal Cornea: corneas normal Pupils: PERRL EOM: EOM intact bilaterally Direct ophthalmoscopy: normal light reflex Neck Neck: normal visual inspection, full ROM, no meningeal signs, trachea midline, supple and nontender Resp Effort & Inspection: normal respiratory effort and able to speak in complete sentences Auscultation: clear to auscultation bilaterally Cardio Rate: regular rate Rhythm: regular rhythm GI Inspection: normal to inspection Palpation: soft, not firm, no guarding, no pulsatile masses and nontender Auscultation: normal bowel sounds Back/Spine/Pelvis Back: No back tenderness Skin General skin exam: no rashes or lesions noted Neuro General: patient alert, patient awake, patient oriented x3, moves all extremities and no focal motor deficits Cranial Nerves: CN's II-XI intact bilaterally Cognition: normal cognition Speech: speech normal Gait: normal gait Motor: muscle tone normal throughout, strength 5/5 throughout, no movement abnormalities noted and no fasciculations Sensory Exam: no sensory deficits noted Extrem General: normal to inspection, full ROM, capillary refill normal, no pedal edema and no calf tenderness Psych Appearance: grossly normal Mental Status: mental status grossly normal Course Vital Signs Vital signs: Vital Signs Temperature 36.3 C L 11/03/21 11:56 Pulse 71 11/03/21 11:56 Respiratory Rate 15 11/03/21 11:56 Blood Pressure 157/63 H 11/03/21 11:56 Pulse Oximetry 100 11/03/21 11:56 Temperature 36.3 C L 11/03/21 11:56 Temperature Source Skin 11/03/21 11:56 Pulse 71 11/03/21 11:56 Respiratory Rate 15 11/03/21 11:56 Blood Pressure 157/63 H 11/03/21 11:56 Pulse Oximetry 100 11/03/21 11:56 Oxygen Delivery Method Room Air 11/03/21 11:56 Oxygen Flow Rate 0 11/03/21 11:56 Pain Level 0 11/03/21 11:56
[2021-11-03] MEDS: Aspirin 81 MG CHEW 243 MG CH (12:54)
[2021-11-03 13:00] LABS: Abs Immature Grans 0.02 10^3/uL (0.0-0.06); Absolute Basophil Count 0.06 10^3/uL (0.0-0.2); Absolute Lymphocyte Count 1.94 10^3/uL (1.2-3.4); Absolute Monocyte Count 0.65 10^3/uL (0.1-0.8); Absolute Neutrophil Count 5.25 10^3/uL (1.2-6.7); Basophils % 0.7; Eosinophils % 2.5; HCT 40.9 % (36.0-46.0); HGB 13.2 g/dL (11.2-15.7); Immature Grans % 0.2; Lymphocytes % 23.9; MCH 33.3 pg (27.0-33.0); MCHC 32.3 % (32.0-36.0); MCV 103.3 fL (80-95); MPV 10.3 fL (8.0-11.0); Neutrophils % 64.7; Nucleated RBC 0 %; Platelet Count 169 10^3/uL (130-400); RBC 3.96 10^6/uL (3.93-5.22); RDW 12.9 % (11.7-14.6); RDW-SD 49.5 fL; WBC 8.12 10^3/uL (4.4-10.8)
[2021-11-03 13:16] LABS: ALT 55 U/L (14-59); AST 50 U/L (15-37); Albumin 3.8 g/dL (3.4-5.0); Alkaline Phosphatase 75 U/L (46-116); Anion Gap 7.1 mmol/L (3-11); BUN 21 mg/dL (7-18); Bilirubin, Total 0.4 mg/dL (0.2-1.0); CO2 26.9 mmol/L (21.0-32.0); CREATININE 1.2 mg/dL (0.55-1.02); Calcium 9.3 mg/dL (8.5-10.1); Chloride 105 mmol/L (98-107); Glucose 105 mg/dL (74-106); Magnesium 2.2 mg/dL (1.8-2.4); Potassium 4.3 mmol/L (3.5-5.1); Sodium 139 mmol/L (136-145); Total Protein 7.5 g/dL (6.4-8.2); Troponin I < 50 ng/L (<or=60)
[2021-11-03] MEDS: Normal Saline 1,000 ML 1000 ML IV (13:16)
[2021-11-03 13:38] LABS: D-Dimer 766 ng/mlFEU (<500)
[2021-11-03 13:43] LABS: COVID-19 PCR Negative (Negative)
[2021-11-03 13:49] LABS: Source Nasal
[2021-11-03 14:42] LABS: Bilirubin Negative (Negative); Blood Negative (Negative); Clarity Clear (Clear); Glucose Negative (Negative); Ketones Negative (Negative); Leukocyte Esterase Negative (Negative); Nitrite Negative (Negative); Specific Gravity 1.015 (1.005-1.025); Urobilinogen 0.2 EU/dL (Up TO 0.2)
[2021-11-03 15:45] LABS: Troponin I < 50 ng/L (<or=60)
== END 2021-11-03 17:14 | disposition home or self-care (01) ==
PROVIDERS: Emergency Provider Physician Assistant; PCP Nurse Practitioner
DX: R42 Dizziness and giddiness (principal); R53.1 Weakness; R07.9 Chest pain, unspecified; Z95.810 Presence of automatic (implantable) cardiac defibrillator
CPT/HCPCS: 36415; 80053; 87635; 93005; 96360; 99284; 71046; 81003; 83735; 84484; 85025; 85379; 93010

== ENCOUNTER → 2021-11-14 00:28 | Outpatient (CLI) | payer MEDICARE, SELFPAY ==
--- NOTE | 2021-11-14 07:30 | DI.MAMMO_ITS ---
Exam(s) MAMMO DIAGNOSTIC UNI EXAM: MAMMO DIAGNOSTIC UNI CLINICAL HISTORY: 3-6 mo f/u abnormal mammo left breast,R92.8,Z09. TECHNIQUE: Craniocaudal and mediolateral oblique Full Field Digital Mammography views of the left b reast with Computer Aided Diagnosis followed by Tomosynthesis. COMPARISON: 2011 through April 2021 FINDINGS: Mammography/Tomosynthesis: Masses/Architectural Distortion: None seen. Microcalcifictions: Stable grouping of punctate, benign-appearing calcifications. Vascular calcifica tions. Coarse calcifications are also seen. No suspicious pleomorphic-type are seen. Skin Thickening/Nipple Retraction: None. Pacemaker again noted over right pectoral muscle IMPRESSION: 1. No evidence of malignancy is noted. 2. Unless there is more urgent need, follow-up screening mammography is recommended, as per [employer] guidelines. BI-RADS Category 2 - Benign Findings Breast Density - Category B - Scattered areas of fibroglandular density A negative radiographic report should not delay biopsy if a dominant or clinically suspicious mass is present. Up to ten percent of cancers are not identified on mammography. A negative report may reinforce clinical impression. Adenosis and dense breasts may obscure an underlying neoplasm. False positive reports average 6 to 10%. Patient will receive a letter notifying them of these results.
== END ==
PROVIDERS: PCP Nurse Practitioner; Visit Provider Nurse Practitioner
DX: R92.8 Other abnormal and inconclusive findings on diagnostic imaging of breast (principal); N60.82 Other benign mammary dysplasias of left breast
CPT/HCPCS: 77061; 77065; G0279